=== PATIENT | female | born 1945 | race Caucasian/White ===

== ENCOUNTER → 2016-12-27 | Day surgery (SDC) | payer MEDICARE, MEDICAID ==
--- NOTE | 2016-12-25 08:48 | MH ---
cc: SHAWNA HARTLEY DATE OF ADMISSION 12/27/2016 HISTORY This is a 71 year-old female with chronic otitis for bilateral myringotomy and tube placement. PAST MEDICAL HISTORY Unremarkable PAST SURGICAL HISTORY Unremarkable REVIEW OF SYSTEMS, FAMILY HISTORY AND SOCIAL HISTORY Unremarkable. PHYSICAL EXAMINATION A well-appearing patient no acute distress noted. HEENT: Exam reveals fluid behind each eardrum. LUNGS: Clear. HEART: Regular rate and rhythm. ABDOMEN: Soft and nontender. EXTREMITIES: Without cyanosis, clubbing or edema. NEUROLOGIC: Alert, oriented, nonfocal neurologic exam. IMPRESSION A patient with chronic otitis for tubes. Instructed method of surgery and possible complication include anesthetic complications cardiac difficulty, pulmonary difficulty, stroke, coma or even . Surgical complications bleeding, infection, risk of early or late extrusion of tubes, tympanic membrane perforation, conductive or sensorineural hearing loss. The patient appeared to agree, accept and understand the above-mentioned risks and benefits. In addition, no guarantees or warranties regarding outcome were given. We will therefore proceed with surgery. MD SHIRA Croft/MONO /8:40 AM /8:47 AM
[~2016-12-27] VITALS: Ht 162.6 cm; Wt 76.0 kg
[~2016-12-27] MED LIST: ACETAMINOPHEN/HYDROcodone 325 MG/5 MG TAB PO PRN; ARTI99.0 EACH EYE; CHLORHEXIDINE GLUCONATE 2 % 1 PACK (2 CLOTHS) TOPICAL PRN; DO NOT ADM ANY ANTICOAGULANT DRUGS PRN; FERR324T4 PO; FERR325T PO; INSULIN HUMAN REGULAR 1,000 UNITS/10 ML VIAL SQ PRN; LACTATED RINGER'S 1000 ML IV PRN; MAPA325T PO; METOPROLOL TARTRATE 25 MG TAB PO PRN; MORPHINE SULFATE 4 MG/ML INJ IV PRN; OFLOXACIN 0.3% OPTH SOLN 5 ML BTL ONE; ONDANSETRON HCL 4 MG/2 ML VIAL IV PUSH ONE; ONDANSETRON HCL 4 MG/2 ML VIAL IV PUSH PRN; PAXI30TA7 PO; POTA1TAB4 PO; POVIDONE IODINE 5% (ANTISEPSIS KIT) 4 APPLICATIONS EACH NARE PRN; PROPOFOL 200 MG/20 ML AMP IV ONE; RANI150C PO; SODIUM CHLORID 0.9% 500 ML IV PRN; TEMA15CA PO; XIFA550T4 PO
[2016-12-27 06:42] VITALS: BP 140/88; PULSE 103; RESP 18; TEMP 97.9; O2SAT 97
[2016-12-27 09:33] VITALS: BP 165/80; PULSE 69; RESP 18; TEMP 97.9; O2SAT 97
--- NOTE | 2016-12-27 16:51 | EKG ---
Date Performed: 12/27/2016 Time Performed: 07:03:43 PTAGE: 71 years EKG: Sinus rhythm MODERATE ST DEPRESSION ABNORMAL ECG PREVIOUS TRACING : 01/06/2016 11.18 Compared to the previous tracing ST changes less prominent DOCTOR: Issa Calderón Interpretating Date/Time 12/27/2016 16:49:50
--- NOTE | 2017-01-04 19:36 | MP ---
cc: SHAWNA HARTLEY DATE OF SURGERY: 12/27/2016 PREOPERATIVE DIAGNOSIS Chronic otitis media. PROCEDURE Bilateral myringotomy and T-tube placement. ANESTHESIA General anesthesia. ESTIMATED BLOOD LOSS Minimal. COMPLICATIONS None. OPERATING SURGEON Dr. Hartley. OPERATION FOLLOWS The patient prepped and draped in the usual fashion. An anterior inferior radial myringotomy incision made under microscopic visualization on the right side. Fluid suctioned from middle ear cavity and tympanostomy T-tube placed in good position along with Oflox. In a similar fashion on the opposite side, anterior inferior radial myringotomy incision made. Fluid suctioned from middle ear cavity under microscopic visualization. Tympanostomy T-tube placed in good position along with Oflox. The patient tolerated the procedure well. MD SHIRA Croft/BJF /8:21 AM /7:21 PM
== END | disposition home or self-care (01) ==
LOC: HSDC 05:57
PROVIDERS: ATTEND Specialist
DX: H66.93 Otitis media, unspecified, bilateral (principal); F17.200 Nicotine dependence, unspecified, uncomplicated; K21.9 Gastro-esophageal reflux disease without esophagitis; R94.31 Abnormal electrocardiogram [ECG] [EKG]
CPT/HCPCS: 00126; 69436; 93005; J2405; J3010; J7120

== ENCOUNTER 2017-03-01 17:48 | Emergency (ER) | payer MEDICARE, MEDICAID ==
[~2017-03-01] VITALS: Ht 162.6 cm; Wt 70.0 kg
[~2017-03-01 17:48] MED LIST changes: -ACETAMINOPHEN/HYDROcodone 325 MG/5 MG TAB PO PRN; -CHLORHEXIDINE GLUCONATE 2 % 1 PACK (2 CLOTHS) TOPICAL PRN; -DO NOT ADM ANY ANTICOAGULANT DRUGS PRN; -FERR325T PO; -INSULIN HUMAN REGULAR 1,000 UNITS/10 ML VIAL SQ PRN; -LACTATED RINGER'S 1000 ML IV PRN; -METOPROLOL TARTRATE 25 MG TAB PO PRN; -MORPHINE SULFATE 4 MG/ML INJ IV PRN; -OFLOXACIN 0.3% OPTH SOLN 5 ML BTL ONE; -ONDANSETRON HCL 4 MG/2 ML VIAL IV PUSH ONE; -ONDANSETRON HCL 4 MG/2 ML VIAL IV PUSH PRN; -POVIDONE IODINE 5% (ANTISEPSIS KIT) 4 APPLICATIONS EACH NARE PRN; -PROPOFOL 200 MG/20 ML AMP IV ONE; -SODIUM CHLORID 0.9% 500 ML IV PRN; -TEMA15CA PO
[2017-03-01 18:24] VITALS: BP 150/92; PULSE 82; RESP 20; TEMP 99.4; O2SAT 94
--- NOTE | 2017-03-01 18:31 | PD ---
Physical Exam Date Seen by Provider: Mar 01, 2017 Time Seen by Provider: 18:30 Narrative 71 yo female here for evaluation of hypertension. History of this in the past. Sent here via ambulance to triage. States she felt "something was wrong". Had some chest pain. BP here 150 systolic. No complaints at this time. No other medical issues. Vitals are stable in triage. Awaiting bed placement. Data Data Last Documented VS Vital Signs Date Time Temp Pulse Resp B/P Pulse Ox O2 Delivery O2 Flow Rate FiO2 03/01/17 18:24 99.4 82 20 150/92 94 Room Air [facility] Medical Record Reviewed: Yes Supervised Visit with MARYAM: Devaughn Andrade Mar 01, 2017 18:31
[2017-03-01 19:38] LABS: AUTOMATED NEUTROPHIL # 2.3 TH/MM3 (1.8-7.7); BASOPHIL % 0.7 % (0.0-2.0); EOSINOPHIL # 0.1 TH/MM3 (0-0.4); HEMATOCRIT 42.3 % (35.0-46.0); LYMPH % 29.4 % (9.0-44.0); LYMPHOCYTE # 1.2 TH/MM3 (1.0-4.8); MEAN CELL VOLUME 99.5 FL (80.0-100.0); MEAN CORPUSCULAR HEMOGLOBIN 34.2 PG (27.0-34.0); MEAN CORPUSCULAR HGB CONC 34.4 % (32.0-36.0); MONO % 9.1 % (0.0-8.0); NEUT % 58.8 % (16.0-70.0); PLATELET COUNT 54 TH/MM3 (150-450); RED BLOOD COUNT 4.25 MIL/MM3 (4.00-5.30); RED CELL DISTRIBUTION WIDTH 14.6 % (11.6-17.2); WHITE BLOOD COUNT 3.9 TH/MM3 (4.0-11.0)
[2017-03-01 19:41] LABS: HEMO FLAGS AUTO DIFF
[2017-03-01 20:03] LABS: ANION GAP 8 MEQ/L (5-15); BICARBONATE 22.6 MEQ/L (21.0-32.0); BLOOD UREA NITROGEN 6 MG/DL (7-18); CHLORIDE 111 MEQ/L (98-107); GLOMERULAR FILTRATION RATE 107 ML/MIN (>89); POTASSIUM 3.5 MEQ/L (3.5-5.1); SODIUM (NA) 142 MEQ/L (136-145)
[2017-03-01 20:05] LABS: PLATELET ESTIMATE SMEAR LOW (NORMAL); PLATELET MORPHOLOGY NORMAL (NORMAL); SCAN/DIFF AUTO DIFF CONFIRMED
[2017-03-01 20:07] LABS: CREATINE KINASE 136 U/L (26-192)
[2017-03-01 20:19] LABS: CKMB 2.1 NG/ML (0.5-3.6)
--- NOTE | 2017-03-01 20:45 | PD ---
HPI Chief Complaint: Hypertension Time Seen by Provider: 20:45 Travel History International Travel<30 days: No Contact w/Intl Traveler<30days: No Traveled to known affect area: No History of Present Illness HPI Patient is a 71-year-old female presents from the rehabilitation facility where she has rehabbing shoulder surgery presents emergency Department with elevated blood pressure. Apparently on a routine check of vital signs today her blood pressure was found to be elevated 180 systolic range. Patient states she doesn' t have a history of blood pressure doesn't take any blood pressure medicines. She states she's been feeling well except for her shoulder pain which is getting better. She denies any chest pain shortness breath abdominal pain nausea vomiting diarrhea to me. Denies any decreased urination. Denies any headache weakness visual difficulties. PFSH Past Medical History Arthritis: No Asthma: No Autoimmune Disease: No Blood Disorders: No Anxiety: No Depression: Yes Heart Rhythm Problems: No Cancer: No Cardiovascular Problems: No High Cholesterol: No Chemotherapy: No Chest Pain: No Congestive Heart Failure: No COPD: No Cerebrovascular Accident: No Diabetes: No Diminished Hearing: Yes (HEARING AIDS) Endocrine: No GERD: No Genitourinary: No Headaches: No Hiatal Hernia: No Hypertension: No Immune Disorder: No Implanted Vascular Access Dvce: Yes Kidney Stones: No Musculoskeletal: Yes (HX RIGHT SHOULDER FX) Neurologic: Yes Psychiatric: Yes (DEPRESSIVE DISORDER) Reproductive: No Respiratory: No Migraines: Yes Radiation Therapy: No Renal Failure: No Seizures: No Sleep Apnea: No Thyroid Disease: No Ulcer: No ?: Not Menopausal: Yes : 2 Para: 2 Miscarriage: 1 Tubal Ligation: Yes Past Surgical History Abdominal Surgery: Yes (BOWEL OBSTRUCTION 35YRS AGO) Endocrine Surgery: Yes (Tubal Ligation) Genitourinary Surgery: Yes Other Surgery: Yes (Tubal ligation, patient denies any other surgeries.) Social History Alcohol Use: No Tobacco Use: Yes (1 PPD) Substance Use: No Allergies-Medications (Allergen,Severity, Reaction): Coded Allergies: No Known Allergies (Verified , 03/01/17) Reported Meds & Prescriptions Reported Meds & Active Scripts Active Reported Ferrous Sulfate DR (Ferrous Sulfate) 324 Mg Tabdr 324 Mg PO DAILY Natural Balance Tears Opth Drops (Artificial Tear Solution Opth Drops) 0.1-0.3% Soln 1 Drop EACH EYE DIRECTED Xifaxan (Rifaximin) 550 Mg Tab 550 Mg PO Q12HR Paxil (Paroxetine HCl) 30 Mg Tab 30 Mg PO DAILY Mapap (Acetaminophen) 325 Mg Tab 650 Mg PO Q4HR PRN Ranitidine (Ranitidine HCl) 150 Mg Cap 150 Mg PO BID K-Tab (Potassium Chloride) 20 Meq Tab 20 Meq PO DAILY Review of Systems Except as stated in HPI: all other systems reviewed are Neg Physical Exam Narrative GENERAL: Well-developed well-nourished in obvious distress. There is wet urine and the crotch of her pants. SKIN: Focused skin assessment warm/dry. HEAD: Atraumatic. Normocephalic. EYES: Pupils equal and round. No scleral icterus. No injection or drainage. ENT: No nasal bleeding or discharge. Mucous membranes pink and moist. NECK: Trachea midline. No JVD. CARDIOVASCULAR: Regular rate and rhythm. No murmur appreciated. 2+ bilateral equal pulses in all 4 extremity's. RESPIRATORY: No accessory muscle use. Clear to auscultation. Breath sounds equal bilaterally. GASTROINTESTINAL: Abdomen soft, non-tender, nondistended. Hepatic and splenic margins not palpable. MUSCULOSKELETAL: No obvious deformities. No clubbing. No cyanosis. No edema. NEUROLOGICAL: Awake and alert. Cranial nerves II through XII are grossly intact and nonfocal, 5 out of 5 strength in all 4 tremors. PSYCHIATRIC: Appropriate mood and affect; insight and judgment normal. Data Data Last Documented VS Vital Signs Date Time Temp Pulse Resp B/P Pulse Ox O2 Delivery O2 Flow Rate FiO2 03/01/17 22:09 89 18 167/89 99 Room Air 03/01/17 18:24 99.4 Orders Electrocardiogram (03/01/17 ) Complete Blood Count With Diff (03/01/17 18:34) Basic Metabolic Panel (Bmp) (03/01/17 18:34) Ckmb (Isoenzyme) Profile (03/01/17 18:34) Troponin I (03/01/17 18:34) CKMB (03/01/17 18:48) CKMB% (03/01/17 18:48) Chest, Pa & Lat (03/01/17 ) Labs Laboratory Tests Test 03/01/17 18:48 White Blood Count 3.9 TH/MM3 Red Blood Count 4.25 MIL/MM3 Hemoglobin 14.5 GM/DL Hematocrit 42.3 % Mean Corpuscular Volume 99.5 FL Mean Corpuscular Hemoglobin 34.2 PG Mean Corpuscular Hemoglobin 34.4 % Concent Red Cell Distribution Width 14.6 % Platelet Count 54 TH/MM3 Mean Platelet Volume 9.3 FL Neutrophils (%) (Auto) 58.8 % Lymphocytes (%) (Auto) 29.4 % Monocytes (%) (Auto) 9.1 % Eosinophils (%) (Auto) 2.0 % Basophils (%) (Auto) 0.7 % Neutrophils # (Auto) 2.3 TH/MM3 Lymphocytes # (Auto) 1.2 TH/MM3 Monocytes # (Auto) 0.4 TH/MM3 Eosinophils # (Auto) 0.1 TH/MM3 Basophils # (Auto) 0.0 TH/MM3 CBC Comment AUTO DIFF Differential Comment AUTO DIFF CONFIRMED Platelet Estimate LOW Platelet Morphology Comment NORMAL Sodium Level 142 MEQ/L Potassium Level 3.5 MEQ/L Chloride Level 111 MEQ/L Carbon Dioxide Level 22.6 MEQ/L Anion Gap 8 MEQ/L Blood Urea Nitrogen 6 MG/DL Creatinine 0.56 MG/DL Estimat Glomerular Filtration 107 ML/MIN Rate Random Glucose 124 MG/DL Calcium Level 8.4 MG/DL Total Creatine Kinase 136 U/L Creatine Kinase MB 2.1 NG/ML Troponin I 0.02 NG/ML MDM Medical Decision Making Medical Screen Exam Complete: Yes Emergency Medical Condition: Yes Differential Diagnosis A symptomatic hypertension, ACS unlikely, MT likely, hypertensive emergency unlikely, CHF unlikely. Narrative Course 71-year-old female presents today with asymptomatic hypertension. Basic labs were obtained in triage which are reassuring. Chest x-ray was added which is reassuring. Discussed with the patient, management of chronic hypertension with her primary care physician in monitoring her blood pressure home. She is stable for discharge at this time. Transportation arrived to take her back to the [place] [facility] facility and she ambulating from the emergency department in no distress. Diagnosis Primary Impression: Asymptomatic hypertension Additional Instructions: Follow-up with your primary care physician for further treatment of your blood pressure to prevent secondary complications. Disposition: 01 DISCHARGE HOME Condition: Stable Fidel Calvin MD Mar 01, 2017 20:45
[2017-03-01 22:09] VITALS: BP 167/89; PULSE 89; RESP 18; O2SAT 99
--- NOTE | 2017-03-01 22:18 | RADRPT ---
EXAM DATE/TIME: 03/01/2017 22:02 [facility] COMPARISON: No previous studies available for comparison. INDICATIONS : Shortness of breath and chest pain. MEDICAL HISTORY : None. SURGICAL HISTORY : None. ENCOUNTER: Initial ACUITY: 1 day PAIN SCORE: 3/10 LOCATION: chest FINDINGS: PA and lateral views of the chest demonstrate the lungs to be symmetrically aerated without evidence of mass, infiltrate or effusion. Minimal linear atelectasis at the bases. The cardiomediastinal cont ours are unremarkable. Osseous structures are intact. CONCLUSION: 1. Minimal linear atelectasis at the bases. Regino Christensen MD on March 01, 2017 at 22:15 Board Certified Radiologist. This report was verified electronically.
--- NOTE | 2017-03-02 16:03 | EKG ---
Date Performed: 03/01/2017 Time Performed: 18:38:28 PTAGE: 71 years EKG: Sinus rhythm MODERATE ST DEPRESSION ABNORMAL ECG PREVIOUS TRACING : 12/27/2016 07.03 Since previous tracing, no significant change. DOCTOR: Ruben García Interpretating Date/Time 03/02/2017 16:02:30
== END 2017-03-01 22:58 | disposition home or self-care (01) ==
LOC: NEPD 17:48
DX: I10 Essential (primary) hypertension (principal); F17.200 Nicotine dependence, unspecified, uncomplicated; R94.31 Abnormal electrocardiogram [ECG] [EKG]
CPT/HCPCS: 71020; 80048; 82550; 82552; 84484; 85025; 93005; 99285

== ENCOUNTER 2017-05-04 12:36 | Emergency (ER) | payer MEDICARE, MEDICAID ==
[2017-05-04 12:42] VITALS: BP 138/86; PULSE 82; RESP 16; TEMP 97.9; O2SAT 97
[2017-05-04] MEDS ORDERED: SODIUM CHLOR 0.9% 1000 ML INJ 1,000 ML IV ONE (12:49)
[2017-05-04] MEDS ORDERED: ZANT150T2 PO (12:53)
[2017-05-04] MEDS ORDERED: CALCCHW5 PO (12:54)
--- NOTE | 2017-05-04 12:56 | PD ---
HPI Chief Complaint: Neuro Symptoms/ Deficits Time Seen by Provider: 12:47 Travel History International Travel<30 days: No Contact w/Intl Traveler<30days: No Traveled to known affect area: No History of Present Illness HPI 71-year-old female presents to the emergency department for evaluation of blurry vision, double vision, dizziness that started approximately an hour ago. Patient states that she lives in a nursing facility. She did arrive via EMS. She woke up feeling okay, took a shower, went outside to smoke. While smoking , she started to feel dizzy and had blurry vision. Patient states that the dizziness resolves when she lay still. She only has dizziness upon movement. Patient states she has had dizziness in the past. Patient denies any headache. No fevers or chills. No chest pain or shortness of breath. No abdominal pain. No nausea, vomiting, diarrhea. Patient has history of hepatic encephalopathy, dementia. Patient denies any alcohol use. She smokes approximately one pack per day. Patient denies any syncope or head injury. PFSH Past Medical History Arthritis: No Asthma: No Autoimmune Disease: No Blood Disorders: No Anxiety: No Depression: Yes Heart Rhythm Problems: No Cancer: No Cardiovascular Problems: No High Cholesterol: No Chemotherapy: No Chest Pain: No Congestive Heart Failure: No COPD: No Cerebrovascular Accident: No Diabetes: No Diminished Hearing: No Endocrine: No GERD: No Genitourinary: No Headaches: No Hiatal Hernia: No Hypertension: No Immune Disorder: No Implanted Vascular Access Dvce: Yes Kidney Stones: No Medical other: Yes (HEPATIC ENCEPHALOPATHY) Musculoskeletal: Yes (HX RIGHT SHOULDER FX) Neurologic: Yes Psychiatric: Yes (DEPRESSIVE DISORDER) Reproductive: No Respiratory: No Migraines: Yes Radiation Therapy: No Renal Failure: No Seizures: No Sleep Apnea: No Thyroid Disease: No Ulcer: No Menopausal: Yes : 2 Para: 2 Miscarriage: 1 Tubal Ligation: Yes Past Surgical History Abdominal Surgery: Yes (BOWEL OBSTRUCTION 35YRS AGO) Ear Surgery: Yes (MYRINGOTOMY AND TUBES) Endocrine Surgery: Yes (Tubal Ligation) Genitourinary Surgery: Yes Other Surgery: Yes (Tubal ligation, patient denies any other surgeries.) Family History Family Myocardial Infarction: Yes Social History Alcohol Use: No (HX OF ETOH USE) Tobacco Use: Yes (1 PPD) Substance Use: No Allergies-Medications (Allergen,Severity, Reaction): Coded Allergies: No Known Allergies (Verified , 03/01/17) Reported Meds & Prescriptions Reported Meds & Active Scripts Active Reported Calcium 600 with Vitamin 600-400 mg-Unit (Calcium Carbonate-Vitamin D) 600 Mg- 400 Chw 1 Tab PO BID Zantac (Ranitidine HCl) 150 Mg Tab 150 Mg PO HS Ferrous Sulfate DR (Ferrous Sulfate) 324 Mg Tabdr 324 Mg PO DAILY Natural Balance Tears Opth Drops (Artificial Tear Solution Opth Drops) 0.1-0.3% Soln 1 Drop EACH EYE DIRECTED Xifaxan (Rifaximin) 550 Mg Tab 550 Mg PO Q12HR Paxil (Paroxetine HCl) 30 Mg Tab 30 Mg PO DAILY Mapap (Acetaminophen) 325 Mg Tab 650 Mg PO Q4HR PRN K-Tab (Potassium Chloride) 20 Meq Tab 20 Meq PO DAILY Review of Systems Except as stated in HPI: all other systems reviewed are Neg Physical Exam Narrative GENERAL: Well-nourished, well-developed female patient, afebrile. Patient is alert and oriented to person, place, time. SKIN: Focused skin assessment warm/dry. HEAD: Normocephalic. Atraumatic. EYES: No scleral icterus. No injection or drainage. PERRLA. NECK: Supple, trachea midline. No JVD or lymphadenopathy. CARDIOVASCULAR: Regular rate and rhythm without murmurs, gallops, or rubs. RESPIRATORY: Breath sounds equal bilaterally. No accessory muscle use. Lungs sounds are clear to auscultation. GASTROINTESTINAL: Abdomen soft, non-tender, nondistended. MUSCULOSKELETAL: No cyanosis, or edema. Bilateral upper and lower extremity strength 5/5. All extremities are neurovascularly intact. NEUROLOGICAL: Awake and alert. Cranial nerves II through XII intact. Motor and sensory grossly within normal limits. Five out of 5 muscle strength in all muscle groups. Normal speech. Data Data Last Documented VS Vital Signs Date Time Temp Pulse Resp B/P (MAP) Pulse Ox O2 Delivery O2 Flow Rate FiO2 05/04/17 12:54 Room Air 05/04/17 12:42 97.9 82 16 138/86 (103) 97 Orders Orders Electrocardiogram (05/04/17 12:49) Complete Blood Count With Diff (05/04/17 12:49) Comprehensive Metabolic Panel (05/04/17 12:49) Magnesium (Mg) (05/04/17 12:49) Ckmb (Isoenzyme) Profile (05/04/17 12:49) Troponin I (05/04/17 12:49) Act Partial Throm Time (Ptt) (05/04/17 12:49) Prothrombin Time / Inr (Pt) (05/04/17 12:49) Urinalysis - C+S If Indicated (05/04/17 12:49) Chest, Single Ap (05/04/17 12:49) Ct Brain W/O Iv Contrast(Rout) (05/04/17 12:49) Ecg Monitoring (05/04/17 12:49) Iv Access Insert/Monitor (05/04/17 12:49) Oximetry (05/04/17 12:49) Sodium Chloride 0.9% Flush (Ns Flush) (05/04/17 13:00) Sodium Chlor 0.9% 1000 Ml Inj (Ns 1000 M (05/04/17 12:49) Orthostatic Vital Signs (05/04/17 12:49) Ammonia (05/04/17 12:56) CKMB (05/04/17 13:05) CKMB% (05/04/17 13:05) Labs Laboratory Tests Test 05/04/17 13:05 White Blood Count 3.4 TH/MM3 Red Blood Count 4.26 MIL/MM3 Hemoglobin 14.6 GM/DL Hematocrit 41.8 % Mean Corpuscular Volume 98.0 FL Mean Corpuscular Hemoglobin 34.3 PG Mean Corpuscular Hemoglobin Concent 35.1 % Red Cell Distribution Width 13.9 % Platelet Count 62 TH/MM3 Mean Platelet Volume 9.3 FL Neutrophils (%) (Auto) 52.4 % Lymphocytes (%) (Auto) 35.2 % Monocytes (%) (Auto) 8.5 % Eosinophils (%) (Auto) 2.7 % Basophils (%) (Auto) 1.2 % Neutrophils # (Auto) 1.8 TH/MM3 Lymphocytes # (Auto) 1.2 TH/MM3 Monocytes # (Auto) 0.3 TH/MM3 Eosinophils # (Auto) 0.1 TH/MM3 Basophils # (Auto) 0.0 TH/MM3 CBC Comment AUTO DIFF Differential Comment AUTO DIFF CONFIRMED Platelet Estimate LOW Platelet Morphology Comment NORMAL Prothrombin Time 13.0 SEC Prothromb Time International Ratio 1.2 RATIO Activated Partial Thromboplast Time 28.9 SEC Urine Color YELLOW Urine Turbidity HAZY Urine pH 8.0 Urine Specific [place] 1.008 Urine Protein NEG mg/dL Urine Glucose (UA) NEG mg/dL Urine Ketones NEG mg/dL Urine Occult Blood NEG Urine Nitrite NEG Urine Bilirubin NEG Urine Urobilinogen LESS THAN 2.0 MG/DL Urine Leukocyte Esterase NEG Urine WBC LESS THAN 1 /hpf Urine Squamous Epithelial Cells 1 /hpf Urine Amorphous Sediment RARE Urine Bacteria RARE /hpf Urine Mucus FEW /lpf Microscopic Urinalysis Comment CULT NOT INDICATED Blood Urea Nitrogen 4 MG/DL Creatinine 0.52 MG/DL Random Glucose 97 MG/DL Total Protein 6.3 GM/DL Albumin 3.1 GM/DL Calcium Level 8.7 MG/DL Magnesium Level 1.8 MG/DL Alkaline Phosphatase 158 U/L Aspartate Amino Transf (AST/SGOT) 60 U/L Alanine Aminotransferase (ALT/SGPT) 33 U/L Total Bilirubin 2.1 MG/DL Sodium Level 142 MEQ/L Potassium Level 4.1 MEQ/L Chloride Level 110 MEQ/L Carbon Dioxide Level 27.6 MEQ/L Anion Gap 4 MEQ/L Estimat Glomerular Filtration Rate 117 ML/MIN Ammonia 44 MCMOL/L Total Creatine Kinase 157 U/L Creatine Kinase MB 2.2 NG/ML Troponin I LESS THAN 0.02 NG/ML MDM Medical Decision Making Medical Screen Exam Complete: Yes Emergency Medical Condition: Yes Medical Record Reviewed: Yes Interpretation(s) CT of the brain - CONCLUSION: 1. Senescent changes with mild small vessel periventricular ischemic white matter demyelination. 2. No acute intracranial abnormality or significant interval change. chest x-ray =- CONCLUSION: 1. Minimal linear left lower lobe opacity, likely atelectasis/scarring. Differential Diagnosis Vertigo versus electrolyte abnormality versus cardiac arrhythmia versus ACS versus dehydration versus TIA versus CVA Narrative Course 71-year-old female presents to the emergency department for evaluation of double vision, dizziness that started approximately an hour ago. Otherwise, she has no other symptoms or complaints. EKG, CBC, CMP, magnesium, CK, troponin , ammonia, PTT, PT/INR, UA are ordered and pending. Chest x-ray and CT of the brain are ordered and pending. Orthostatic vital signs are ordered and pending. Patient is given normal saline 1 L IV bolus. EKG shows sinus rhythm, heart rate, 77, unchanged previous EKG. CBC shows leukopenia of 3.4, which appears chronic for patient. CMP shows elevated bilirubin 2.1, AST 60, no acute abnormalities. CK is 157. Troponin is less than 0.02. Magnesium is 1.8. Ammonia is 44. Coags show no acute abnormality. UA is negative for acute infection. Chest x-ray shows Minimal linear left lower lobe opacity, likely atelectasis/scarring. CT of the brain shows senescent changes with mild small vessel periventricular ischemic white matter demyelination; no acute intracranial abnormality or significant interval change. Patient is able to ambulate in the emergency department without difficulty. I discussed the case and all findings attending physician, Dr. Velasquez, who agrees with plan and disposition. Patient will be discharged back to nursing facility to follow-up with her primary care physician. She verbalizes agreement and understanding of like to return home. The patient was discharged in stable condition with instructions, including return instructions and follow up instructions. Diagnosis Primary Impression: Dizziness Referrals: Primary Care Physician call for appointment Patient Instructions: Dizziness (ED), General Instructions Additional Instructions: Follow-up with your primary care physician. Return to the emergency department for any acute worsening of symptoms. Med/Other Pt SpecificInfo: No Change to Meds Disposition: 01 DISCHARGE HOME Condition: Stable Ela Keane ASHLEIGH May 04, 2017 12:55
[2017-05-04] MEDS ORDERED: SODIUM CHLORIDE 0.9% FLUSH 10 ML FLUSH IVF PRN (13:00)
--- NOTE | 2017-05-04 13:21 | RADRPT ---
EXAM DATE/TIME: 05/04/2017 13:11 [facility] COMPARISON: CT BRAIN W/O CONTRAST, January 05, 2016, 11:43. INDICATIONS : Dizziness and vision changes today. RADIATION DOSE: 34.37 CTDIvol (mGy) MEDICAL HISTORY : Dementia. hepatic encephalopathy SURGICAL HISTORY : Tubal ligation. ENCOUNTER: Initial ACUITY: 1 day PAIN SCALE: 0/10 LOCATION: Bilateral head TECHNIQUE: Multiple contiguous axial images were obtained of the head. Using automated exposure control and adj ustment of the mA and/or kV according to patient size, radiation dose was kept as low as reasonably a chievable to obtain optimal diagnostic quality images. DICOM format image data is available electro nically for review and comparison. FINDINGS: CEREBRUM: Moderate diffuse cerebral volume loss. Mild periventricular ischemic white matter hypodensities. The ventricles are normal for age. No evidence of midline shift, mass lesion, hemorrhage or acute infarc tion. No extra-axial fluid collections are seen. POSTERIOR FOSSA: The cerebellum and brainstem are intact. The 4th ventricle is midline. The cerebellopontine angle i s unremarkable. EXTRACRANIAL: The visualized portion of the orbits is intact. SKULL: The calvaria is intact. No evidence of skull fracture. CONCLUSION: 1. Senescent changes with mild small vessel periventricular ischemic white matter demyelination. 2. No acute intracranial abnormality or significant interval change. Krish Alvarez MD on May 04, 2017 at 13:18 Board Certified Radiologist. This report was verified electronically.
[2017-05-04 13:28] LABS: AUTOMATED NEUTROPHIL # 1.8 TH/MM3 (1.8-7.7); BASOPHIL % 1.2 % (0.0-2.0); EOSINOPHIL # 0.1 TH/MM3 (0-0.4); EOSINOPHIL % 2.7 % (0.0-4.0); HEMATOCRIT 41.8 % (35.0-46.0); LYMPH % 35.2 % (9.0-44.0); LYMPHOCYTE # 1.2 TH/MM3 (1.0-4.8); MEAN CORPUSCULAR HEMOGLOBIN 34.3 PG (27.0-34.0); MEAN CORPUSCULAR HGB CONC 35.1 % (32.0-36.0); MONO % 8.5 % (0.0-8.0); NEUT % 52.4 % (16.0-70.0); PLATELET COUNT 62 TH/MM3 (150-450); RED BLOOD COUNT 4.26 MIL/MM3 (4.00-5.30); RED CELL DISTRIBUTION WIDTH 13.9 % (11.6-17.2); WHITE BLOOD COUNT 3.4 TH/MM3 (4.0-11.0)
[2017-05-04 13:29] LABS: HEMO FLAGS AUTO DIFF
[2017-05-04 13:38] LABS: APTT (PATIENT) 28.9 SEC (24.3-30.1); BACTERIA, URINE RARE /hpf; BLOOD, URINE NEG (NEG); COMMENT (UR) CULT NOT INDICATED; CULTURE IF INDICATED CULT NOT INDICATED; GLUCOSE,URINE NEG (NEG); INTERNATIONAL NORMALIZED RATIO 1.2 RATIO; KETONE, URINE NEG (NEG); MUCUS URINE FEW /lpf (OCC); NITRITE,URINE NEG (NEG); SQUAMOUS EPITHELIAL CELL URINE 1 /hpf (0-5); URINE COLOR YELLOW (YELLW/STRAW)
--- NOTE | 2017-05-04 13:51 | EKG ---
Date Performed: 05/04/2017 Time Performed: 12:53:06 PTAGE: 71 years EKG: Sinus rhythm NONSPECIFIC ST DEPRESSION ABNORMAL ECG NO PREVIOUS TRACING DOCTOR: Loyd Bustamante Interpretating Date/Time 05/04/2017 13:50:58
[2017-05-04 13:52] LABS: ALKALINE PHOSPHATASE 158 U/L (45-117); CREATINE KINASE 157 U/L (26-192); TOTAL BILIRUBIN ADULT 2.1 MG/DL (0.2-1.0)
[2017-05-04 13:54] LABS: ALT (GPT) 33 U/L (10-53); ANION GAP 4 MEQ/L (5-15); AST (GOT) 60 U/L (15-37); BICARBONATE 27.6 MEQ/L (21.0-32.0); BLOOD UREA NITROGEN 4 MG/DL (7-18); CHLORIDE 110 MEQ/L (98-107); GLOMERULAR FILTRATION RATE 117 ML/MIN (>89); MAGNESIUM 1.8 MG/DL (1.5-2.5); PLATELET ESTIMATE SMEAR LOW (NORMAL); PLATELET MORPHOLOGY NORMAL (NORMAL); POTASSIUM 4.1 MEQ/L (3.5-5.1); SCAN/DIFF AUTO DIFF CONFIRMED; SODIUM (NA) 142 MEQ/L (136-145)
--- NOTE | 2017-05-04 14:02 | RADRPT ---
EXAM DATE/TIME: 05/04/2017 13:34 [facility] COMPARISON: CHEST SINGLE AP, January 05, 2016, 11:19. INDICATIONS : High blood pressure per patient MEDICAL HISTORY : None. SURGICAL HISTORY : None. ENCOUNTER: Initial ACUITY: 1 day PAIN SCORE: 0/10 LOCATION: Bilateral chest FINDINGS: No new focal pleural or parenchymal opacities. Cardiomediastinal contours are within normal limits. B jose thorax is intact. CONCLUSION: 1. No acute cardiopulmonary disease or significant interval change. Krish Alvarez MD on May 04, 2017 at 14:00 Board Certified Radiologist. This report was verified electronically.
[2017-05-04 14:05] LABS: CKMB 2.2 NG/ML (0.5-3.6)
== END 2017-05-04 17:56 | disposition home or self-care (01) ==
LOC: NEPE 12:36
DX: R42 Dizziness and giddiness (principal); D72.819 Decreased white blood cell count, unspecified; K72.90 Hepatic failure, unspecified without coma; F03.90 Unspecified dementia, unspecified severity, without behavioral disturbance, psychotic disturbance, mood disturbance, and anxiety; R94.31 Abnormal electrocardiogram [ECG] [EKG]; F17.200 Nicotine dependence, unspecified, uncomplicated; F32.9 Major depressive disorder, single episode, unspecified; Z79.899 Other long term (current) drug therapy
CPT/HCPCS: 70450; 71010; 80053; 81001; 82140; 82550; 82552; 83735; 84484; 85025; 85610; 85730; 93005; 99285; J7030

== ENCOUNTER → 2017-06-18 | Outpatient (CLI) | payer MEDICARE, OTHER ==
[~2017-06-18] VITALS: Ht 157.5 cm; Wt 75.6 kg
[~2017-06-18] MED LIST changes: +CALCCHW5 PO; +CHLORHEXIDINE GLUCONATE 2 % 1 PACK (2 CLOTHS) TOPICAL PRN; +CIPR0.3S EACH EAR; +HYDR-3288 PO; +INSULIN HUMAN REGULAR 1,000 UNITS/10 ML VIAL SQ PRN; +LACT10SO PO; +LACTATED RINGER'S 1000 ML IV PRN; +LIDOCAINE HCL 1% PF 5 ML AMPULE OTHER ONE; +METOPROLOL TARTRATE 25 MG TAB PO PRN; +POVIDONE IODINE 5% (ANTISEPSIS KIT) 4 APPLICATIONS EACH NARE PRN; +PROPOFOL 200 MG/20 ML AMP IV ONE; -RANI150C PO; +SODIUM CHLORID 0.9% 500 ML IV PRN; +TEMA15CA PO; +XIFA200T4 PO; +ZANT150T2 PO; +[UNRECOGNIZED DRUG - CODE] TOPICAL
--- NOTE | 2017-06-18 10:17 | PD.PROCEDR ---
GI Procedure PROCEDURE PERFORMED EGD with biopsy INDICATION FOR PROCEDURE Cirrhosis PROCEDURE: The procedure, risks and benefits were discussed with Ms. Valentin and informed consent was obtained. Anesthesia sedated her with Diprivan. She was placed in the left lateral decubitus position. EGD: The Pentax videoscope was introduced through the oropharynx and advanced to the second portion of the duodenum under direct visualization. Retroflexion was performed in the stomach. FINDINGS: Esophagus this appeared to be unremarkable and within normal limits the Z line was regular Stomach the gastric mucosa was diffusely erythemic in a punctate fashion with some mild edema and no ulcerations no erosions the antrum was biopsied for further evaluation on retroflexion the patient was noted to have a fairly very small possible gastric varices Duodenum this was normal ESTIMATED BLOOD LOSS: None SPECIMENS REMOVED: Antral biopsy COMPLICATIONS: None IMPRESSION: Pangastritis Small early possible gastric varices PLAN: Await biopsies Follow-up in clinic in 3-4 weeks Low-salt diet Esteban Escobedo MD Jun 18, 2017 10:17
[2017-06-18 10:30] VITALS: TEMP 97.7
[2017-06-18 10:45] VITALS: BP 130/72; PULSE 73; RESP 16; O2SAT 98
== END ==
LOC: HSDC 07:44
PROVIDERS: ATTEND Internal Medicine Gastroenterology
DX: K29.50 Unspecified chronic gastritis without bleeding (principal)
CPT/HCPCS: 88305; 88312

== ENCOUNTER 2017-12-13 12:03 | Inpatient (IN) | payer MEDICARE, OTHER ==
[2017-12-13] VITALS (7 sets, daily range): BP systolic 136–196; BP diastolic 63–86; PULSE 56–58; RESP 18; TEMP 97.9; O2SAT 94–99
[~2017-12-13] VITALS: Ht 160 cm; Wt 73.7 kg
[~2017-12-13 12:03] MED LIST changes: -CHLORHEXIDINE GLUCONATE 2 % 1 PACK (2 CLOTHS) TOPICAL PRN; -INSULIN HUMAN REGULAR 1,000 UNITS/10 ML VIAL SQ PRN; -LACTATED RINGER'S 1000 ML IV PRN; -LIDOCAINE HCL 1% PF 5 ML AMPULE OTHER ONE; -METOPROLOL TARTRATE 25 MG TAB PO PRN; -POVIDONE IODINE 5% (ANTISEPSIS KIT) 4 APPLICATIONS EACH NARE PRN; -PROPOFOL 200 MG/20 ML AMP IV ONE; -SODIUM CHLORID 0.9% 500 ML IV PRN; -XIFA550T4 PO
[2017-12-13] MEDS ORDERED: IODIXANOL 320 MG/ML 10 ML VIAL (for Rad CT) IVCONTRAST ONE (12:04)
[2017-12-13] MEDS ORDERED: SODIUM CHLOR 0.9% 1000 ML INJ 1,000 ML IV ONE (12:20)
--- NOTE | 2017-12-13 12:29 | RADRPT ---
EXAM DATE/TIME: 12/13/2017 12:10 [facility] COMPARISON: No previous studies available for comparison. INDICATIONS : Stroke alert, left side deficit. RADIATION DOSE: 56.35 CTDIvol (mGy) This report was called by Phani Gates at 1224 MEDICAL HISTORY : Non-responsive. SURGICAL HISTORY : Non-responsive. ENCOUNTER: Initial ACUITY: 1 day PAIN SCALE: Non-responsive LOCATION: cranial TECHNIQUE: Multiple contiguous axial images were obtained of the head. Using automated exposure control and adj ustment of the mA and/or kV according to patient size, radiation dose was kept as low as reasonably a chievable to obtain optimal diagnostic quality images. DICOM format image data is available electro nically for review and comparison. FINDINGS: Ventricles are symmetric and normal in appearance. No abnormal extra-axial fluid accumulation is iden tified. There is no evidence of intracranial hemorrhage or mass. There is nothing to suggest acute in farction. There is patchy diminished attenuation and deep white matter appears benign. There is mild mucosal thickening in occasional facial sinuses. CONCLUSION: No acute intracranial findings Candido Jeronimo MD on December 13, 2017 at 12:23 Board Certified Radiologist. This report was verified electronically.
[2017-12-13 12:57] LABS: AUTOMATED NEUTROPHIL # 1.2 TH/MM3 (1.8-7.7); BASOPHIL % 0.6 % (0.0-2.0); EOSINOPHIL # 0.1 TH/MM3 (0-0.4); EOSINOPHIL % 2.7 % (0.0-4.0); HEMATOCRIT 42.7 % (35.0-46.0); HEMOGLOBIN 14.4 GM/DL (11.6-15.3); LYMPH % 49.4 % (9.0-44.0); LYMPHOCYTE # 1.5 TH/MM3 (1.0-4.8); MEAN CELL VOLUME 99.1 FL (80.0-100.0); MEAN CORPUSCULAR HEMOGLOBIN 33.4 PG (27.0-34.0); MEAN CORPUSCULAR HGB CONC 33.7 % (32.0-36.0); MEAN PLATELET VOLUME 10.1 FL (7.0-11.0); MONO % 8.2 % (0.0-8.0); MONOCYTE # 0.2 TH/MM3 (0-0.9); NEUT % 39.1 % (16.0-70.0); PLATELET COUNT 55 TH/MM3 (150-450); RED CELL DISTRIBUTION WIDTH 14.4 % (11.6-17.2)
[2017-12-13] MEDS ORDERED: NADO20TA PO (12:57)
[2017-12-13] MEDS ORDERED: LISI-519 PO (12:57)
--- NOTE | 2017-12-13 12:58 | PD ---
HPI Chief Complaint: Stroke Alert Time Seen by Provider: 12:20 Travel History International Travel<30 days: No Contact w/Intl Traveler<30days: No Traveled to known affect area: No History of Present Illness HPI This patient was brought in as a stroke alert. Unfortunately I was not notified of the patient's arrival and no stroke alert was called. I was out of the pod briefly when the patient arrives and the patient went to CT probably after the 10 minute window and before even seeing the patient. The patient returns from CT I evaluated the patient promptly. Patient at 11:00 vomited and was noted to have left arm and left leg weakness and a left-sided facial droop. She has history of alcoholic liver disease and thrombocytopenia. She no longer drinks alcohol. She is a penitentiary resident. She has some mild speech slurring which is chronic. Symptoms moderately severe. Duration 90 minutes. No alleviating factors. No exacerbating factors. PFSH Past Medical History Arthritis: No Asthma: No Autoimmune Disease: No Blood Disorders: No Anxiety: No Depression: Yes Heart Rhythm Problems: No Cancer: No Cardiovascular Problems: No High Cholesterol: No Chemotherapy: No Chest Pain: No Congestive Heart Failure: No COPD: No Cerebrovascular Accident: No Diabetes: No Diminished Hearing: Yes Endocrine: No GERD: No Genitourinary: No Headaches: No Hiatal Hernia: No Hypertension: No Immune Disorder: No Implanted Vascular Access Dvce: Yes Kidney Stones: No Musculoskeletal: Yes (HX RIGHT SHOULDER FX) Neurologic: Yes Psychiatric: Yes (DEPRESSIVE DISORDER) Reproductive: No Respiratory: No Migraines: Yes Radiation Therapy: No Renal Failure: No Seizures: No Sleep Apnea: No Thyroid Disease: No Ulcer: No Tetanus Vaccination: > 5 Years Influenza Vaccination: No Menopausal: Yes : 2 Para: 2 Miscarriage: 1 Tubal Ligation: Yes Past Surgical History Abdominal Surgery: Yes (BOWEL OBSTRUCTION 35YRS AGO) Ear Surgery: Yes (MYRINGOTOMY AND TUBES) Endocrine Surgery: Yes (Tubal Ligation) Genitourinary Surgery: Yes Other Surgery: Yes (Tubal ligation, patient denies any other surgeries.) Family History Family Myocardial Infarction: Yes Social History Alcohol Use: No (HX OF ETOH USE) Tobacco Use: Yes (1 PPD) Substance Use: No Allergies-Medications (Allergen,Severity, Reaction): Coded Allergies: No Known Allergies (Verified Allergy, Unknown, 12/13/17) Reported Meds & Prescriptions Reported Meds & Active Scripts Active Reported Nadolol 20 Mg Tab 20 Mg PO DAILY Lisinopril 5 Mg Tab 5 Mg PO DAILY Ciprodex Otic Drops (Ciprofloxacin-Dexamethasone Otic Drops) 0.3-0.1% Susp 3 Drop EACH EAR BID PRN [place] (Hydrocodone-Acetaminophen) 7.5-325 mg Tab 1 Tab PO Q4H PRN Xifaxan (Rifaximin) 200 Mg Tab 400 Mg PO TID Lactulose Liq (Lactulose) 10 Gm/15 Ml Soln 30 Ml PO BID Hydrocortisone Butyrate Topical (Hydrocortisone Butyrate) 0.1% Soln 1 Applic TOPICAL BID Temazepam 15 Mg Cap 15 Mg PO HS PRN Calcium 600 with Vitamin 600-400 mg-Unit (Calcium Carbonate-Vitamin D) 600 Mg- 400 Chw 1 Tab PO BID Zantac (Ranitidine HCl) 150 Mg Tab 150 Mg PO HS Ferrous Sulfate DR (Ferrous Sulfate) 324 Mg Tabdr 324 Mg PO DAILY Natural Balance Tears Opth Drops (Artificial Tear Solution Opth Drops) 0.1-0.3% Soln 1 Drop EACH EYE DIRECTED Paxil (Paroxetine HCl) 30 Mg Tab 30 Mg PO DAILY Mapap (Acetaminophen) 325 Mg Tab 650 Mg PO Q4HR PRN K-Tab (Potassium Chloride) 20 Meq Tab 20 Meq PO DAILY Review of Systems General / Constitutional: No: Fever Eyes: No: Visual changes HENT: No: Headaches Cardiovascular: No: Chest Pain or Discomfort Respiratory: No: Shortness of Breath Gastrointestinal: No: Abdominal Pain Genitourinary: No: Dysuria Musculoskeletal: Positive: Weakness, No: Pain Skin: No Rash Neurologic: Positive: Weakness, Slurred Speech Psychiatric: No: Depression Endocrine: No: Polydipsia Hematologic/Lymphatic: No: Easy Bruising Physical Exam Narrative GENERAL: Well-nourished, well-developed patient in no apparent distress. SKIN: Focused skin assessment reveals no rash and nodules. Skin is Warm and dry. HEAD: Atraumatic. Normocephalic. EYES: Pupils equal and round. No scleral icterus. No injection or drainage. ENT: No nasal bleeding or discharge. Mucous membranes pink and moist. NECK: Trachea midline. No JVD. CARDIOVASCULAR: Regular rate and rhythm. No murmur appreciated. RESPIRATORY: No accessory muscle use. Clear to auscultation. Breath sounds equal bilaterally. GASTROINTESTINAL: Abdomen soft, non-tender, nondistended. Hepatic and splenic margins not palpable. MUSCULOSKELETAL: No obvious deformities. No clubbing. No cyanosis. No edema. NEUROLOGICAL: Awake and alert. Subtle left-sided facial droop. Motor exam reveals subtle left arm and left leg weakness. Slight slurring of speech. PSYCHIATRIC: Appropriate mood and affect; insight and judgment slightly reduced. Data Data Last Documented VS Vital Signs Date Time Temp Pulse Resp B/P (MAP) Pulse Ox O2 Delivery O2 Flow Rate FiO2 12/13/17 14:46 56 18 136/64 (88) 95 Nasal Cannula 2.00 12/13/17 12:12 97.9 Orders Orders Diet Npo (12/13/17 Lunch) Activity Bed Rest (12/13/17 ) Electrocardiogram (12/13/17 ) I-Stat Profile (12/13/17 12:20) Prothrombin Time / Inr (Pt) (12/13/17 12:20) Act Partial Throm Time (Ptt) (12/13/17 12:20) Complete Blood Count With Diff (12/13/17 12:20) Fibrinogen (12/13/17 12:20) Creatine Kinase (Cpk) (12/13/17 12:20) Troponin I (12/13/17 12:20) Ua Includes Microscopic (12/13/17 12:20) Drug Screen, Random Urine (12/13/17 12:20) Type And Screen (12/13/17 12:20) Ct Brain W/O Iv Contrast(Rout) (12/13/17 ) Blood Glucose (12/13/17 12:20) Ecg Monitoring (12/13/17 12:20) Neuro Checks Q2HX12,Q4H (12/13/17 12:20) Nursing Bedside Swallow Assess .ONCE (12/13/17 12:20) Iv Access Insert/Monitor (12/13/17 12:20) NPO (12/13/17 12:20) Oximetry (12/13/17 12:20) Resp Oxygen Nc Stroke (12/13/17 ) Sodium Chlor 0.9% 1000 Ml Inj (Ns 1000 M (12/13/17 12:20) Cath For Specimen (12/13/17 12:20) Cta Brain W Iv Contrast W 3d (12/13/17 12:37) Cta Neck W Iv Contrast W 3d (12/13/17 12:37) Consult Neurology (12/13/17 ) (Hub Use Only)Inp Phy Cons/Ref (12/13/17 ) Iodixanol 320 Inj (Rad Ct) (Visipaque 32 (12/13/17 12:04) Red Blood Cells (Rbc) (12/13/17 12:10) Mri Brain W/O Contrast (12/13/17 ) Echo 2d Comp With Doppler (12/13/17 ) Lipid Profile (12/13/17 14:47) Admit To Inpatient (12/13/17 ) Vital Signs (Adult) Q4H (12/13/17 15:16) Nih Stroke Scale - Nihss .On admission and discharge (12/13/17 15:16) Neuro Checks Q4H (12/13/17 15:16) Notify Dr: Other (12/13/17 15:16) Ot Request For Service (12/13/17 15:16) Consult Pt Eval & Treat (12/13/17 15:16) Speech Therapy Consult-Eval/Tx (12/13/17 15:16) Case Management Consult (12/13/17 ) Activity Bed Rest (12/13/17 15:16) Nursing Bedside Swallow Assess .ONCE (12/13/17 15:16) Scd Bilateral/Knee High CARLEY.QSHIFT (12/13/17 15:16) Diet Npo (12/13/17 Dinner) Hemoglobin (Hgb) A1c (12/13/17 15:16) Lipid Profile (12/14/17 06:00) Resp Oxygen Nc Stroke (12/13/17 ) ^ Hold Medication (12/13/17 15:16) Sodium Chloride 0.9% Flush (Ns Flush) (12/13/17 21:00) Sodium Chloride 0.9% Flush (Ns Flush) (12/13/17 15:30) Sodium Chlor 0.9% 1000 Ml Inj (Ns 1000 M (12/13/17 15:16) Enalaprilat Inj (Vasotec Inj) (12/13/17 15:30) Aspirin Chew (Aspirin Chew) (12/13/17 16:00) Atorvastatin (Lipitor) (12/13/17 21:00) Bedside Glucose CARLEY.CSUGAR (12/13/17 15:16) ^ Discontinue Insulin Orders (12/13/17 15:16) Insulin Aspart Supplemtl Scale (Novolog (12/13/17 17:00) Dextrose 50% In Alejandra (Vial) Inj (D50w (Vi (12/13/17 15:30) Glucagon Inj (Glucagon Inj) (12/13/17 15:30) Consult Rehab Medicine (12/13/17 15:16) Evp And Chief Operating Officer / Telemetry CARLEY.Q8H (12/13/17 15:16) Consult Stroke Navigator (12/13/17 ) Scd Bilateral/Knee High CARLEY.BID (12/13/17 15:16) Inpatient Certification (12/13/17 ) Metoclopramide Inj (Reglan Inj) (12/13/17 15:30) Comprehensive Metabolic Panel (12/14/17 06:00) Complete Blood Count With Diff (12/14/17 06:00) Case Management Consult (12/13/17 15:20) Naloxone Inj (Narcan Inj) (12/13/17 15:30) Docusate Sodium-Senna ([place]-Colace) (12/13/17 21:00) Magnesium Hydroxide Liq (Milk Of Magnesi (12/13/17 15:30) Sennosides (Senokot) (12/13/17 15:30) Bisacodyl Supp (Dulcolax Supp) (12/13/17 15:30) Lactulose Liq (Lactulose Liq) (12/13/17 15:30) Ammonia (12/13/17 15:29) Lactulose Liq (Lactulose Liq) (12/13/17 21:00) Nadolol (Corgard) (12/14/17 09:00) Potassium Chloride (Kcl) (12/14/17 09:00) Rifaximin (Xifaxan) (12/13/17 18:00) Temazepam (Restoril) (12/13/17 15:30) Ferrous Sulfate (Ferrous Sulfate) (12/14/17 09:00) Paroxetine (Paxil) (12/14/17 09:00) Famotidine (Pepcid) (12/13/17 21:00) (Hub Use Only)Inp Phy Cons/Ref (12/13/17 ) Pill Splitter (Pill Splitter) (12/13/17 16:15) Labs Laboratory Tests Test 12/13/17 12:10 12/13/17 13:20 12/13/17 15:55 White Blood Count 3.0 TH/MM3 Red Blood Count 4.30 MIL/MM3 Hemoglobin 14.4 GM/DL Bedside Hemoglobin 13.6 G/DL Hematocrit 42.7 % Bedside Hematocrit 40.0 % Mean Corpuscular Volume 99.1 FL Mean Corpuscular Hemoglobin 33.4 PG Mean Corpuscular Hemoglobin Concent 33.7 % Red Cell Distribution Width 14.4 % Platelet Count 55 TH/MM3 Mean Platelet Volume 10.1 FL Neutrophils (%) (Auto) 39.1 % Lymphocytes (%) (Auto) 49.4 % Monocytes (%) (Auto) 8.2 % Eosinophils (%) (Auto) 2.7 % Basophils (%) (Auto) 0.6 % Neutrophils # (Auto) 1.2 TH/MM3 Lymphocytes # (Auto) 1.5 TH/MM3 Monocytes # (Auto) 0.2 TH/MM3 Eosinophils # (Auto) 0.1 TH/MM3 Basophils # (Auto) 0.0 TH/MM3 CBC Comment AUTO DIFF Differential Comment AUTO DIFF CONFIRMED Platelet Estimate LOW Platelet Morphology Comment NORMAL Ovalocytes 1+ Prothrombin Time 12.7 SEC Prothromb Time International Ratio 1.3 RATIO Activated Partial Thromboplast Time 26.7 SEC Fibrinogen 179 mg/dL Bedside Sodium 144 MMOL/L Bedside Potassium 3.8 MMOL/L Bedside Chloride 105 MMOL/L Bedside Blood Urea Nitrogen 4 MG/DL Bedside Creatinine 0.5 MG/DL Bedside Glucose 114 MG/DL Total Creatine Kinase 99 U/L Troponin I LESS THAN 0.02 NG/ML Urine Color YELLOW Urine Turbidity HAZY Urine pH 8.0 Urine Specific [place] 1.016 Urine Protein NEG mg/dL Urine Glucose (UA) NEG mg/dL Urine Ketones NEG mg/dL Urine Occult Blood NEG Urine Nitrite NEG Urine Bilirubin NEG Urine Urobilinogen 4.0 MG/DL Urine Leukocyte Esterase NEG Urine RBC LESS THAN 1 /hpf Urine WBC 3 /hpf Urine Squamous Epithelial Cells 6 /hpf Urine Amorphous Sediment RARE Urine Bacteria MANY /hpf Urine Mucus FEW /lpf Urine Opiates Screen NEG Urine Barbiturates Screen NEG Urine Amphetamines Screen NEG Urine Benzodiazepines Screen NEG Urine Cocaine Screen NEG Urine Cannabinoids Screen NEG Ammonia 31 MCMOL/L MDM Medical Decision Making Medical Screen Exam Complete: Yes Emergency Medical Condition: Yes Medical Record Reviewed: Yes Differential Diagnosis Ischemic stroke, hemorrhagic stroke, TIA Narrative Course I have reviewed the patient's electronic medical record. Reviewed her hematology consultation from November 2017. Last platelet count 62,000 Stroke alert protocol instituted Emergent brain CT is negative for hemorrhage I reviewed the case with our neurologist head and neck surgeon Labs are still pending. She does not recommend TPA. She will be a high risk for bleeding given her thrombocytopenia and alcoholism and her deficits are pretty subtle at this point. She recommends CTA of the head and neck so those will be done now Initial blood pressure 196 systolic, utilizing permissive hypertension and will treat if it is over 220 systolic EKG shows sinus bradycardia at 58. Extended cardiac monitoring reveals sinus rhythm without ectopy Brain CT is negative CBC shows chronic thrombocytopenia as expected Metabolic studies reviewed case discussed with medical residents will admit Critical Care Narrative Aggregate critical care time was 40 minutes. Time to perform other separately billable procedures was not included in the critical care time. My time did not include minutes spent treating any other patients simultaneously or on activities that did not directly contribute to the patient's treatment. The services I provided to this patient were to treat and/or prevent clinically significant deterioration that could result in: Permanent neurologic deficit, brain stem herniation, cardiopulmonary arrest I provided critical care services requiring my management, as noted below: Chart data review, documentation time, medication orders and management, vital sign assessments/reviewing monitor data, ordering and reviewing lab tests, ordering and interpreting/reviewing x-rays and diagnostic studies, care of the patient and discussion of the patient with the admitting physicians. Diagnosis Primary Impression: Acute ischemic stroke Additional Impression: Thrombocytopenia Admitting Information Admitting Physician Requests: Matt Colorado MD December 13, 2017 12:58
[2017-12-13 13:08] LABS: INTERNATIONAL NORMALIZED RATIO 1.3 RATIO; PROTHROMBIN TIME - PATIENT 12.7 SEC (9.8-11.6)
[2017-12-13 13:10] LABS: TROPONIN I LESS THAN 0.02 NG/ML (0.02-0.05)
[2017-12-13 13:27] LABS: OVALOCYTES 1+ (NORMAL)
[2017-12-13 13:37] LABS: AMORPHOUS SEDIMENT, URINE RARE; BACTERIA, URINE MANY /hpf; BILIRUBIN, URINE NEG (NEG); BLOOD, URINE NEG (NEG); GLUCOSE,URINE NEG (NEG); KETONE, URINE NEG (NEG); MUCUS URINE FEW /lpf (OCC); NITRITE,URINE NEG (NEG); SQUAMOUS EPITHELIAL CELL URINE 6 /hpf (0-5); URINE COLOR YELLOW (YELLW/STRAW); URINE LEUKOCYTE ESTERASE NEG (NEG)
--- NOTE | 2017-12-13 14:06 | RADRPT ---
EXAM DATE/TIME: 12/13/2017 13:04 [facility] COMPARISON: No previous studies available for comparison. INDICATIONS : Stroke alert; left facial droop and left arm weakness. IV CONTRAST: 65 cc Visipaque (iodixanol) IV ; Cumulative dose for multiple exams. RADIATION DOSE: 10.85 CTDIvol (mGy) ; Reconstructed from previous dataset, no dose MEDICAL HISTORY : Dementia. SURGICAL HISTORY : Non-responsive. ENCOUNTER: Initial ACUITY: 1 day PAIN SCALE: Non-responsive LOCATION: cranial TECHNIQUE: Volumetric scanning was performed using a multi-row detector CT scanner. The data was post processed with a variety of visualization algorithms including full volume maximum intensity projection, multi -planar sliding thin slab reformation, curved planar reformation, and surface rendering techniques. Using automated exposure control and adjustment of the mA and/or kV according to patient size, radiat ion dose was kept as low as reasonably achievable to obtain optimal diagnostic quality images. DICO M format image data is available electronically for review and comparison. FINDINGS: There is excellent visualization of the major intracranial arteries out to the second-order branch ve ssels. There is no evidence for aneurysm, vessel truncation or stenosis, and no evidence for vascula r malformation. Both vertebral arteries are patent. 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 [place]-like configuration of the distal ba silar but no kendrick aneurysmal disease CONCLUSION: Intracranial vessels are all patent without embolus. Anatomic variant of the [place] a s detailed above Jenaro Kumar MD on December 13, 2017 at 13:59 Board Certified Radiologist. This report was verified electronically.
--- NOTE | 2017-12-13 14:11 | RADRPT ---
EXAM DATE/TIME: 12/13/2017 13:04 [facility] COMPARISON: No previous studies available for comparison. INDICATIONS : Stroke alert; left side facial droop, left arm weakness. IV CONTRAST: 65 cc Omnipaque 350 (iohexol) IV ; Cumulative dose for multiple exams. RADIATION DOSE: 10.85 CTDIvol (mGy) ; Combined studies - Brain/Cervical Spine MEDICAL HISTORY : Dementia. SURGICAL HISTORY : None. ENCOUNTER: Initial ACUITY: 1 day PAIN SCALE: Non-responsive LOCATION: neck Elevated flow velocities and ICA/CCA ratios have been found to correlate with increased degrees of vessel stenosis, calculated as percentage of diameter relative to a normal segment of distal ICA/CCA. TECHNIQUE: Volumetric scanning was performed using a multirow detector CT scanner. The data was post processed with a variety of visualization algorithms including full-volume maximum intensity projection, multip lanar sliding thin-slab reformation, curved-planar reformation, and surface-rendering techniques. Us ing automated exposure control and adjustment of the mA and/or kV according to patient size, radiatio n dose was kept as low as reasonably achievable to obtain optimal diagnostic quality images. DICOM f ormat image data is available electronically for review and comparison. FINDINGS: AORTIC ARCH: There is a three-vessel origin of the great vessels from the aorta. Scattered atherosclerotic calcifi cation of the arch vessels are patent. RIGHT CAROTID: The common carotid artery is intact. Atherosclerotic calcification in the carotid bulb extending into the internal with no significant stenosis. The external carotid artery is intact. LEFT CAROTID: The common carotid artery is intact. Atherosclerotic calcification of the carotid bulb extending into the internal with no significant stenosis. The external carotid artery is intact. VERTEBRALS: The vertebral arteries have a symmetric diameter. No stenotic lesions are seen. CONCLUSION: 1. Atherosclerotic calcification in the arch, proximal arch vessels and both carotid bifurcations. 2. However, arch and cervical vessels are patent throughout with no significant stenosis. Jenaro Kumar MD on December 13, 2017 at 14:04 Board Certified Radiologist. This report was verified electronically.
--- NOTE | 2017-12-13 15:02 | MB ---
cc: Lisa Alaniz MD DATE: 12/13/2017 HISTORY OF PRESENT ILLNESS: She came in as a stroke alert. She came in with some possible left-sided weakness, left facial droop, had some vomiting at 11:00 in the afternoon. She had a CT that was unremarkable. She has a significant past medical history of thrombocytopenia, alcoholic liver disease. She lives in a group home, no longer drinking. She has undergone CT, CTA. When I went to see her, her symptoms have resolved. PAST MEDICAL HISTORY: As stated. FAMILY HISTORY: Cardiac disease. SOCIAL HISTORY: She lives in a group home. History of ethanol abuse. A smoker of about a pack a day. No substance abuse. ALLERGIES: NONE REPORTED. HOME MEDICATIONS: Please refer to MAR, but she is not on any antiplatelets. PHYSICAL EXAMINATION: VITAL SIGNS: Temperature 97.9, pulse 58, respiratory rate 18, blood pressure 145/63, satting at 95% on 2 liters nasal cannula. NECK: Supple, no bruits. HEART: Regular. NEUROLOGIC: She is awake and alert. Her speech is intact. Her pupils are reactive. There may be questionable mild left facial asymmetry. She keeps her left eye closed but extraocular muscles are intact. Tongue midline. Facial sensation normal. Motor carcamo, I do not see any drift or leg lag. Toes withdraw. Reflexes trace to 1+. Sensory normal. Cerebellar normal. Gait is withheld. LABORATORY DATA: Reviewed. White count is 3. Platelets of 55,000. Coag panel: PT 12.7, fibrinogen 179. Chemistries: Glucose 114. Toxicology was negative. Urine hazy, no culture indicated. IMAGING STUDIES: CT head was unremarkable. Neck CTA: Some calcification but no significant stenosis. CTA of the [place]: Anatomic variant of the [place] but otherwise unremarkable. IMPRESSION AND RECOMMENDATIONS: Questionable stroke versus transient ischemic attack. Her NIH was a 4 at onset. Given her thrombocytopenia and her improving symptoms, I do not feel she is a candidate for TPA. We will continue to monitor her. Get an MRI of the brain. PT, OT, speech therapy. Check an echo. Get a lipid panel. SCDs and consider low dose baby aspirin daily but would have to watch her platelets closely. She is a high risk for bleeding. Continue current care. MD BRANDY Ortiz/SARAH , 02:47 PM , 03:01 PM
--- NOTE | 2017-12-13 15:21 | HHI.HP ---
HPI Service Family Medicine Primary Care Physician Unknown Admission Diagnosis Diagnoses: International Travel<30 Days: No Contact w/Intl Traveler<30days: No Known Affected Area: No History of Present Illness 72 yo F with PMH of alcoholic cirrhosis, thrombocytopenia who comes to the ED as a stroke alert. She is a resident of [facility]. Was in normal state of health this AM, but after smoking a cigarette around 11:00 AM she felt like she couldn't stand up due to dizziness. She vomited at that time and is also endorsing blurry vision that is worse in her L eye. Per report she had left sided weakness but she denies this. Denies headache, chest pain, SOB. She does have L sided facial droop as well. (Bennie Fitch MD R1) Review of Systems Constitutional: COMPLAINS OF: Dizziness, DENIES: Fever, Chills Eyes: COMPLAINS OF: Blurred vision Respiratory: DENIES: Cough, Wheezing Cardiovascular: DENIES: Chest pain, Palpitations Gastrointestinal: COMPLAINS OF: Nausea, Vomiting, DENIES: Abdominal pain, Bloody stools, Constipation, Diarrhea Genitourinary: DENIES: Hematuria, Dysuria Musculoskeletal: DENIES: Joint pain, Muscle aches Hematologic/lymphatic: COMPLAINS OF: Bruising, DENIES: Lymphadenopathy Neurologic: DENIES: Headache, Localized weakness, Paresthesias Psychiatric: DENIES: Confusion (Bennie Fitch MD R1) Past Family Social History Past Medical History Recently diagnosed cirrhosis GERD HTN Thrombocytopenia Past Surgical History Tubal ligation R shoulder surgery (Bennie Fitch MD R1) Allergies: Coded Allergies: No Known Allergies (Verified Allergy, Unknown, 12/13/17) Family History Noncontributory Social History Lives at [facility] Has 2 children Former heavy drinker, hasn't in 1.5 years 1ppd smoker for 30 years (Bennie Fitch MD R1) Physical Exam Vital Signs Vital Signs Date Time Temp Pulse Resp B/P (MAP) Pulse Ox O2 Delivery O2 Flow Rate FiO2 12/13/17 14:46 56 18 136/64 (88) 95 Nasal Cannula 2.00 12/13/17 13:01 58 18 145/63 (90) 95 Nasal Cannula 2.00 12/13/17 12:39 94 Nasal Cannula 2.00 12/13/17 12:37 57 18 196/77 (116) 94 Nasal Cannula 2.00 12/13/17 12:30 94 Nasal Cannula 2.00 12/13/17 12:30 94 2.00 12/13/17 12:15 56 18 94 12/13/17 12:12 97.9 56 18 194/86 (122) 94 Physical Exam GENERAL: This is a well-nourished, well-developed patient, in no apparent distress. SKIN: No rashes, ecchymoses or lesions. Cool and dry. HEAD: Atraumatic. Normocephalic. No temporal or scalp tenderness. EYES: Pupils equal round and reactive. No scleral icterus. No injection or drainage. ENT: Nose without bleeding, purulent drainage or septal hematoma. Throat without erythema, tonsillar hypertrophy or exudate. Uvula midline. Airway patent. NECK: Trachea midline. No JVD or lymphadenopathy. Supple, nontender, no meningeal signs. CARDIOVASCULAR: Regular rate and rhythm without murmurs, gallops, or rubs. RESPIRATORY: Clear to auscultation. Breath sounds equal bilaterally. No wheezes , rales, or rhonchi. GASTROINTESTINAL: Abdomen soft, non-tender, nondistended. No hepato-splenomegaly , or palpable masses. No guarding. MUSCULOSKELETAL: Extremities without clubbing, cyanosis, or edema. No joint tenderness, effusion, or edema noted. No calf tenderness. Negative Homans sign bilaterally. NEUROLOGICAL: Awake and alert. Cranial nerves II through XII intact except for L sided facial droop, asymmetric smile. She keeps her L eye closed during the interview but is able to open it on command. EOMI. Motor and sensory grossly within normal limits. Five out of 5 muscle strength in all muscle groups. Questionable slurred speech. Laboratory Laboratory Tests Test 12/13/17 12:10 12/13/17 13:20 White Blood Count 3.0 Red Blood Count 4.30 Hemoglobin 14.4 Bedside Hemoglobin 13.6 Hematocrit 42.7 Bedside Hematocrit 40.0 Mean Corpuscular Volume 99.1 Mean Corpuscular Hemoglobin 33.4 Mean Corpuscular Hemoglobin Concent 33.7 Red Cell Distribution Width 14.4 Platelet Count 55 Mean Platelet Volume 10.1 Neutrophils (%) (Auto) 39.1 Lymphocytes (%) (Auto) 49.4 Monocytes (%) (Auto) 8.2 Eosinophils (%) (Auto) 2.7 Basophils (%) (Auto) 0.6 Neutrophils # (Auto) 1.2 Lymphocytes # (Auto) 1.5 Monocytes # (Auto) 0.2 Eosinophils # (Auto) 0.1 Basophils # (Auto) 0.0 CBC Comment AUTO DIFF Differential Comment AUTO DIFF CONFIRMED Platelet Estimate LOW Platelet Morphology Comment NORMAL Ovalocytes 1+ Prothrombin Time 12.7 Prothromb Time International Ratio 1.3 Activated Partial Thromboplast Time 26.7 Fibrinogen 179 Bedside Sodium 144 Bedside Potassium 3.8 Bedside Chloride 105 Bedside Blood Urea Nitrogen 4 Bedside Creatinine 0.5 Bedside Glucose 114 Total Creatine Kinase 99 Troponin I LESS THAN 0.02 Urine Color YELLOW Urine Turbidity HAZY Urine pH 8.0 Urine Specific Draper 1.016 Urine Protein NEG Urine Glucose (UA) NEG Urine Ketones NEG Urine Occult Blood NEG Urine Nitrite NEG Urine Bilirubin NEG Urine Urobilinogen 4.0 Urine Leukocyte Esterase NEG Urine RBC LESS THAN 1 Urine WBC 3 Urine Squamous Epithelial Cells 6 Urine Amorphous Sediment RARE Urine Bacteria MANY Urine Mucus FEW Urine Opiates Screen NEG Urine Barbiturates Screen NEG Urine Amphetamines Screen NEG Urine Benzodiazepines Screen NEG Urine Cocaine Screen NEG Urine Cannabinoids Screen NEG (Bennie Fitch MD R1) Result Diagram: 12/13/17 1210 Imaging Last 24 hours Impressions Neck CTA 12/13/17 1237 Signed Impressions: Service Date/Time: Wednesday, December 13, 2017 13:04 - CONCLUSION: 1. Atherosclerotic calcification in the arch, proximal arch vessels and both carotid bifurcations. 2. However, arch and cervical vessels are patent throughout with no significant stenosis. Jenaro Kumar MD Head CTA 12/13/17 1237 Signed Impressions: Service Date/Time: Wednesday, December 13, 2017 13:04 - CONCLUSION: Intracranial vessels are all patent without embolus. Anatomic variant of the [place] as detailed above Jenaro Kumar MD Head CT 12/13/17 0000 Signed Impressions: Service Date/Time: Wednesday, December 13, 2017 12:10 - CONCLUSION: No acute intracranial findings Candido Jeronimo MD (Bennie Fitch MD R1) Caprini VTE Risk Assessment Caprini VTE Risk Assessment: Mod/High Risk (score >= 2) Caprini Risk Assessment Model Point Value = 1 Point Value = 2 Point Value = 3 Point Value = 5 Age 41-60 Minor surgery BMI > 25 kg/m2 Swollen legs Varicose veins or History of unexplained or recurrent spontaneous Oral contraceptives or hormone replacement Sepsis (< 1 month) Serious lung disease, including pneumonia (< 1 month) Abnormal pulmonary function Acute myocardial infarction Congestive heart failure (< 1 month) History of inflammatory bowel disease Medical patient at bed rest Age 61-74 Arthroscopic surgery Major open surgery (> 45 min) Laparoscopic surgery (> 45 min) Malignancy Confined to bed (> 72 hours) Immobilizing plaster cast Central venous access Age >= 75 History of VTE Family history of VTE Factor V Leiden Prothrombin [id number] Lupus anticoagulant Anticardiolipin antibodies Elevated serum homocysteine Heparin-induced thrombocytopenia Other congenital or acquired thrombophilia Stroke (< 1 month) Elective arthroplasty Hip, pelvis, or leg fracture Acute spinal cord injury (< 1 month) Prophylaxis Regimen Total Risk Factor Score Risk Level Prophylaxis Regimen 0-1 Low Early ambulation 2 Moderate Order ONE of the following: *Sequential Compression Device (SCD) *Heparin 5000 units SQ BID 3-4 Higher Order ONE of the following medications: *Heparin 5000 units SQ TID *Enoxaparin/Lovenox 40 mg SQ daily (WT < 150 kg, CrCl > 30 mL/min) *Enoxaparin/Lovenox 30 mg SQ daily (WT < 150 kg, CrCl > 10-29 mL/min) *Enoxaparin/Lovenox 30 mg SQ BID (WT < 150 kg, CrCl > 30 mL/min) AND/OR *Sequential Compression Device (SCD) 5 or more Highest Order ONE of the following medications: *Heparin 5000 units SQ TID (Preferred with Epidurals) *Enoxaparin/Lovenox 40 mg SQ daily (WT < 150 kg, CrCl > 30 mL/min) *Enoxaparin/Lovenox 30 mg SQ daily (WT < 150 kg, CrCl > 10-29 mL/min) *Enoxaparin/Lovenox 30 mg SQ BID (WT < 150 kg, CrCl > 30 mL/min) AND *Sequential Compression Device (SCD) (Bennie Fitch MD R1) Assessment and Plan Assessment and Plan 72 yo F with PMH of alcoholic cirrhosis, HTN, thrombocytopenia presenting to the ED as a stroke alert. At 11:00 AM on morning of admission she suddenly became dizzy, vomited, and had reported L sided weakness. Has possible mild left sided facial droop, slurred speech. CT Head on admission negative for acute bleed. Neurology consulted on admission and patient will not undergo TPA at this time. Admitting for further workup. Code Status Full code Discussed Condition With Dr. Raul Wallace (Bennie Fitch MD R1) Problem List: (1) CVA (cerebral vascular accident) ICD Codes: I63.9 - Cerebral infarction, unspecified Plan: Patient with acute onset of dizziness, nausea, blurry vision and reported left-sided weakness. Mild facial droop, possible slurred speech on admission CT head negative for acute bleed on admission Neck CTA on admission showed atherosclerotic Calcification in the arch, proximal arch vessels in both carotid bifurcations but no significant stenosis in the cervical vessels Head CTA showed all intracranial vessels patent without embolus Neurology consulted. Elected against TPA as patient has a history of thrombocytopenia and symptoms were improving on admission MRI brain pending, 2D echo pending Lipid profile within normal limits Hemoglobin A1c pending PT, OT, speech therapy Aspirin 81 mg daily Currently on Lipitor 10 mg daily, will continue Permissive hypertension Telemetry Normal saline at 110 mm/h (2) Cirrhosis ICD Codes: K74.60 - Unspecified cirrhosis of liver Plan: Known history of cirrhosis On rifaximin, lactulose daily Ammonia level within normal limits on admission No further workup at this time (3) Thrombocytopenia ICD Codes: D69.6 - Thrombocytopenia, unspecified Plan: Patient with a known history of thrombocytopenia Platelet count of 55 on admission No signs of acute bleeding We will continue to monitor (4) GERD (gastroesophageal reflux disease) ICD Codes: K21.9 - Gastro-esophageal reflux disease without esophagitis Plan: On history of GERD Continue home Pepcid (5) FEN Plan: Normal saline at 110 mL/h Will replete electrolytes as needed Currently n.p.o. until patient passes swallow study Holding DVT prophylaxis as patient has history of thrombocytopenia and is at risk for bleeding. SCDs (Bennie Fitch MD R1) Problem List: (1) CVA (cerebral vascular accident) ICD Codes: I63.9 - Cerebral infarction, unspecified Plan: Patient with acute onset of dizziness, nausea, blurry vision and reported left-sided weakness. Mild facial droop, possible slurred speech on admission CT head negative for acute bleed on admission Neck CTA on admission showed atherosclerotic Calcification in the arch, proximal arch vessels in both carotid bifurcations but no significant stenosis in the cervical vessels Head CTA showed all intracranial vessels patent without embolus Neurology consulted. Elected against TPA as patient has a history of thrombocytopenia and symptoms were improving on admission MRI brain pending, 2D echo pending Lipid profile within normal limits Hemoglobin A1c pending PT, OT, speech therapy Aspirin 81 mg daily Currently on Lipitor 10 mg daily, will continue Permissive hypertension Telemetry Normal saline at 110 mm/h (2) Cirrhosis ICD Codes: K74.60 - Unspecified cirrhosis of liver Plan: Known history of cirrhosis On rifaximin, lactulose daily Ammonia level within normal limits on admission No further workup at this time (3) Thrombocytopenia ICD Codes: D69.6 - Thrombocytopenia, unspecified Plan: Patient with a known history of thrombocytopenia Platelet count of 55 on admission No signs of acute bleeding We will continue to monitor (4) GERD (gastroesophageal reflux disease) ICD Codes: K21.9 - Gastro-esophageal reflux disease without esophagitis Plan: On history of GERD Continue home Pepcid (5) FEN Plan: Normal saline at 110 mL/h Will replete electrolytes as needed Currently n.p.o. until patient passes swallow study Holding DVT prophylaxis as patient has history of thrombocytopenia and is at risk for bleeding. SCDs See the residents documentation for details. I saw and evaluated the patient regarding the jefferson portions of this evaluation and agree with the residents findings and plans as written. Parts of this note were created using [employer] voice recognition software program. While efforts were made to correct any mistakes made by this software, some mistakes, errors, and omissions may remain in the final note that were not caught when the note was originally created. Plan of care was discussed and agreed upon with the patient as specifically documented in the above note. An opportunity to ask questions with explanation was provided. Patient voiced understanding on all information reviewed and discussed. (Norberto Wallace MD) Bennie Fitch MD R1 December 13, 2017 15:21 Norberto Wallace MD December 16, 2017 11:24
[2017-12-13] MEDS ORDERED: NALOXONE HCL 0.4 MG/ML AMP IV PUSH PRN (15:30)
[2017-12-13] MEDS ORDERED: SENNOSIDES 8.6 MG TAB PO PRN (15:30)
[2017-12-13] MEDS ORDERED: GLUCAGON 1 MG/ML VIAL OTHER PRN (15:30)
[2017-12-13] MEDS ORDERED: SODIUM CHLORIDE 0.9% FLUSH 10 ML FLUSH IV FLUSH PRN (15:30)
[2017-12-13] MEDS ORDERED: MAGNESIUM HYDROXIDE SUSP 30 ML CUP PO PRN (15:30)
[2017-12-13] MEDS ORDERED: METOCLOPRAMIDE HCL 10 MG/2 ML VIAL IV PUSH PRN (15:30)
[2017-12-13] MEDS ORDERED: BISACODYL 10 MG SUPP RECTAL PRN (15:30)
[2017-12-13] MEDS ORDERED: DEXTROSE 50% IN WATER 50 ML VIAL(D50) IV PUSH PRN (15:30)
[2017-12-13] MEDS ORDERED: LACTULOSE SYRUP 20 GM/30 ML CUP PO PRN (15:30)
[2017-12-13] MEDS: SODIUM CHLOR 0.9% 1000 ML INJ 1,000 ML IV SCH ×2 (15:48→22:04)
[2017-12-13] MEDS: ASPIRIN 81 MG CHEW TAB PO SCH (15:58)
[2017-12-13] MEDS ORDERED: PILL SPLITTER OTHER PRN (16:15)
--- NOTE | 2017-12-13 16:47 | RADRPT ---
EXAM DATE/TIME: 12/13/2017 16:11 [facility] COMPARISON: CT BRAIN W/O CONTRAST, January 05, 2016, 11:43. INDICATIONS : Stroke alert. MEDICAL HISTORY : Hypertension. SURGICAL HISTORY : Foot sx, bowel obstruction. ENCOUNTER: Initial ACUITY: 2 day PAIN SCORE: 0/10 LOCATION: head TECHNIQUE: Multiplanar, multisequence MRI of the brain was performed without contrast. FINDINGS: CEREBRUM: The ventricles are normal for age. No evidence of midline shift, mass lesion, hemorrhage or acute in farction. No extraaxial fluid collections are seen. The pituitary gland and suprasellar cistern are normal in configuration. WHITE MATTER: Scattered areas of white matter T2 prolongation in the periventricular and subcortical regions. At le ast a couple of punctate areas of old microhemorrhage in the right hemisphere. POSTERIOR FOSSA: The cerebellum and brainstem are intact. The 4th ventricle is midline. The cerebellopontine angle is unremarkable. The cerebellar tonsils are normal in position. DIFFUSION IMAGING: No focal areas of restricted diffusion are seen. No evidence of acute infarction. EXTRACRANIAL: The visualized portions of the orbits and paranasal sinuses are unremarkable. CONCLUSION: No evidence of acute stroke. Chronic appearing white matter signal changes and a couple of areas of o ld microhemorrhage. Candido Jeronimo MD on December 13, 2017 at 16:42 Board Certified Radiologist. This report was verified electronically.
[2017-12-13] MEDS: INSULIN ASPART SUPPLEMENTAL SCALE SQ SCH ×2 (17:00→21:00)
--- NOTE | 2017-12-13 17:17 | EKG ---
Date Performed: 12/13/2017 Time Performed: 12:55:54 PTAGE: 72 years EKG: SINUS BRADYCARDIA DIFFUSE ST CHANGES PROLONGED QT INTERVAL ABNORMAL ECG PREVIOUS TRACING : 05/04/2017 12.53 Compared to previous tracing, QTc increased DOCTOR: Man Zepeda Interpretating Date/Time 12/13/2017 17:16:18
[2017-12-13 17:55] LABS: CHOLESTEROL/ HDL RATIO 2.81 RATIO
[2017-12-13] MEDS: RIFAXIMIN 200 MG TAB PO SCH (18:31)
[2017-12-13] MEDS: SODIUM CHLORIDE 0.9% FLUSH 10 ML FLUSH IV FLUSH SCH (21:00)
[2017-12-13] MEDS: LACTULOSE SYRUP 20 GM/30 ML CUP PO SCH (21:00)
[2017-12-13] MEDS: DOCUSATE SODIUM 50 MG/SENNA 8.6 MG TAB PO SCH (21:00)
[2017-12-13] MEDS: TEMAZEPAM 15 MG CAP PO PRN (21:57)
[2017-12-13] MEDS: ATORVASTATIN 10 MG TAB PO SCH (21:58)
[2017-12-13] MEDS: FAMOTIDINE 20 MG TAB PO SCH (21:58)
[2017-12-13 22:51] LABS: HEMOGLOBIN A1C 4.6 % (4.3-6.0)
[2017-12-14] VITALS (13 sets, daily range): BP systolic 127–170; BP diastolic 62–79; PULSE 57–76; RESP 18–19; TEMP 97.6–99; O2SAT 90–98
[2017-12-14 07:26] LABS: AUTOMATED NEUTROPHIL # 3.3 TH/MM3 (1.8-7.7); BASOPHIL % 0.8 % (0.0-2.0); EOSINOPHIL # 0.1 TH/MM3 (0-0.4); EOSINOPHIL % 1.3 % (0.0-4.0); HEMATOCRIT 39.7 % (35.0-46.0); HEMOGLOBIN 13.6 GM/DL (11.6-15.3); LYMPH % 18.2 % (9.0-44.0); LYMPHOCYTE # 0.8 TH/MM3 (1.0-4.8); MEAN CELL VOLUME 98.7 FL (80.0-100.0); MEAN CORPUSCULAR HEMOGLOBIN 33.7 PG (27.0-34.0); MEAN CORPUSCULAR HGB CONC 34.1 % (32.0-36.0); MEAN PLATELET VOLUME 10.9 FL (7.0-11.0); MONO % 4.4 % (0.0-8.0); MONOCYTE # 0.2 TH/MM3 (0-0.9); NEUT % 75.3 % (16.0-70.0); PLATELET COUNT 41 TH/MM3 (150-450); RED BLOOD COUNT 4.03 MIL/MM3 (4.00-5.30); RED CELL DISTRIBUTION WIDTH 14.8 % (11.6-17.2); WHITE BLOOD COUNT 4.4 TH/MM3 (4.0-11.0)
[2017-12-14 07:58] LABS: ALBUMIN 2.7 GM/DL (3.4-5.0); AST (GOT) 53 U/L (15-37); BICARBONATE 25.1 MEQ/L (21.0-32.0); BLOOD UREA NITROGEN 5 MG/DL (7-18); CALCIUM 7.9 MG/DL (8.5-10.1); CHLORIDE 110 MEQ/L (98-107); CREATININE 0.44 MG/DL (0.50-1.00); GLOMERULAR FILTRATION RATE 141 ML/MIN (>89); GLUCOSE,RANDOM 88 MG/DL (74-106); SODIUM (NA) 142 MEQ/L (136-145)
[2017-12-14 07:59] LABS: ALT (GPT) 30 U/L (10-53)
[2017-12-14] MEDS: INSULIN ASPART SUPPLEMENTAL SCALE SQ SCH ×4 (08:00→21:00)
[2017-12-14 08:01] LABS: ALKALINE PHOSPHATASE 121 U/L (45-117); TOTAL PROTEIN 5.5 GM/DL (6.4-8.2)
[2017-12-14] MEDS: SODIUM CHLORIDE 0.9% FLUSH 10 ML FLUSH IV FLUSH SCH ×2 (08:25→21:00)
[2017-12-14] MEDS: DOCUSATE SODIUM 50 MG/SENNA 8.6 MG TAB PO SCH ×2 (08:26→21:06)
[2017-12-14] MEDS: NADOLOL 20 MG TAB PO SCH (08:26)
[2017-12-14] MEDS: FAMOTIDINE 20 MG TAB PO SCH ×2 (08:26→21:13)
[2017-12-14] MEDS: PARoxetine HCL 20 MG TAB PO SCH (08:27)
[2017-12-14] MEDS: RIFAXIMIN 200 MG TAB PO SCH ×3 (08:27→17:04)
[2017-12-14] MEDS: LACTULOSE SYRUP 20 GM/30 ML CUP PO SCH ×2 (08:29→21:00)
[2017-12-14] MEDS: SODIUM CHLOR 0.9% 1000 ML INJ 1,000 ML IV SCH ×2 (08:31→17:03)
[2017-12-14] MEDS: POTASSIUM CHLORIDE 20 MEQ CONTROLLED RELEASE TAB PO SCH (08:33)
[2017-12-14] MEDS: ASPIRIN 81 MG CHEW TAB PO SCH (08:58)
[2017-12-14] MEDS ORDERED: FERROUS SULFATE 325 MG (65 MG ELEMENTAL IRON) TAB PO SCH (09:00)
[2017-12-14] MEDS: MECLIZINE HCL 25 MG TAB PO SCH ×2 (09:18→17:04)
--- NOTE | 2017-12-14 11:20 | HHI.FPPN ---
Subjective Remarks No acute events overnight. Patient states that she continues to feel dizzy when standing. Denies dizziness when sitting or laying flat. She states that the sensation is more of lightheadedness as opposed to the room spinning. Denies ringing in her ears. Denies chest pain, shortness of breath, nausea or vomiting. (Bennie Fitch MD R1) Objective Vitals Vital Signs Date Time Temp Pulse Resp B/P (MAP) Pulse Ox O2 Delivery O2 Flow Rate FiO2 12/14/17 09:56 69 12/14/17 08:54 98.3 76 18 168/74 (105) 90 165/71 (102) 131/66 (87) 12/14/17 04:30 97.6 60 19 145/72 (96) 98 12/14/17 01:38 98 Nasal Cannula 2.00 12/14/17 01:00 57 12/14/17 00:30 98.8 64 19 150/69 (96) 97 12/13/17 21:30 97.9 57 18 164/75 (104) 98 12/13/17 18:41 12/13/17 17:35 56 18 142/63 (89) 99 Nasal Cannula 2.00 12/13/17 14:46 56 18 136/64 (88) 95 Nasal Cannula 2.00 12/13/17 13:01 58 18 145/63 (90) 95 Nasal Cannula 2.00 12/13/17 12:39 94 Nasal Cannula 2.00 12/13/17 12:37 57 18 196/77 (116) 94 Nasal Cannula 2.00 12/13/17 12:30 94 Nasal Cannula 2.00 12/13/17 12:30 94 2.00 12/13/17 12:15 56 18 94 12/13/17 12:12 97.9 56 18 194/86 (122) 94 I/O 12/13/17 12/13/17 12/13/17 12/14/17 12/14/17 12/14/17 06:59 14:59 22:59 06:59 14:59 22:59 Intake Total 1400 ml 500 ml Output Total 350 ml Balance 1050 ml 500 ml Intake Oral 400 ml 500 ml IV Total 1000 ml Output Urine Total 350 ml # Voids 3 5 # Bowel Movements 0 0 (Bennie Fitch MD R1) Result Diagram: 12/14/17 0601 12/14/17 0601 Imaging Last 48 hours Impressions Neck CTA 12/13/17 1237 Signed Impressions: Service Date/Time: Wednesday, December 13, 2017 13:04 - CONCLUSION: 1. Atherosclerotic calcification in the arch, proximal arch vessels and both carotid bifurcations. 2. However, arch and cervical vessels are patent throughout with no significant stenosis. Jenaro Kumar MD Head CTA 12/13/17 1237 Signed Impressions: Service Date/Time: Wednesday, December 13, 2017 13:04 - CONCLUSION: Intracranial vessels are all patent without embolus. Anatomic variant of the [place] as detailed above Jenaro Kumar MD Head CT 12/13/17 0000 Signed Impressions: Service Date/Time: Wednesday, December 13, 2017 12:10 - CONCLUSION: No acute intracranial findings Candido Jeronimo MD Brain MRI 12/13/17 0000 Signed Impressions: Service Date/Time: Wednesday, December 13, 2017 16:11 - CONCLUSION: No evidence of acute stroke. Chronic appearing white matter signal changes and a couple of areas of old microhemorrhage. Candido Jeronimo MD Objective Remarks GENERAL: This is a well-nourished, well-developed patient, in no apparent distress. SKIN: No rashes, ecchymoses or lesions. Cool and dry. HEAD: Atraumatic. Normocephalic. ENT: Otoscope used to examine ears. Right TM with tympanostomy tube in place with no draining or bleeding. No tympanostomy tube in place on the left TM. No fluid, purulence or bleeding appreciated. CARDIOVASCULAR: Regular rate and rhythm without murmurs, gallops, or rubs. RESPIRATORY: Clear to auscultation. Breath sounds equal bilaterally. No wheezes , rales, or rhonchi. GASTROINTESTINAL: Abdomen soft, non-tender, nondistended. No hepato-splenomegaly , or palpable masses. No guarding. MUSCULOSKELETAL: Extremities without clubbing, cyanosis, or edema. No joint tenderness, effusion, or edema noted. No calf tenderness. Negative Homans sign bilaterally. NEUROLOGICAL: Awake and alert. Cranial nerves II through XII. No notable facial droop or asymmetric smile appreciated today. EOMI. Motor and sensory grossly within normal limits. Five out of 5 muscle strength in all muscle groups. Speech is also improved from prior exam (Bennie Fitch MD R1) A/P Assessment and Plan 72 yo F with PMH of alcoholic cirrhosis, HTN, thrombocytopenia presenting to the ED as a stroke alert. At 11:00 AM on morning of admission she suddenly became dizzy, vomited, and had reported L sided weakness. Has possible mild left sided facial droop, slurred speech. CT Head on admission negative for acute bleed. Neurology consulted on admission and patient will not undergo TPA at this time. Admitting for further workup. Discharge Planning Likely discharge tomorrow. (Bennie Fitch MD R1) Problem List: (1) Dizziness ICD Codes: R42 - Dizziness and giddiness Plan: Patient with acute onset of dizziness, nausea, blurry vision and reported left-sided weakness. Mild facial droop, possible slurred speech on admission Neurology consulted. Elected against TPA as patient has a history of thrombocytopenia and symptoms were improving on admission Workup for stroke is been negative at this point Lipid profile, hemoglobin A1c normal Patient does have over 30 point drop in systolic blood pressure from sitting to standing on orthostatic vital signs Will order PT to eval for BPV We will also start meclizine 25 mg every 8 hours for symptomatic improvement 2D echo pending PT, OT, speech therapy Aspirin 81 mg daily - holding today as platelets decreased at 41 (lowest recorded platelet count in our records) Currently on Lipitor 10 mg daily, will continue Normal saline at 110 mm/h Imaging: CT head negative for acute bleed on admission Neck CTA on admission showed atherosclerotic Calcification in the arch, proximal arch vessels in both carotid bifurcations but no significant stenosis in the cervical vessels Head CTA showed all intracranial vessels patent without embolus MRI brain without evidence of acute stroke (2) Cirrhosis ICD Codes: K74.60 - Unspecified cirrhosis of liver Plan: Known history of cirrhosis On rifaximin, lactulose daily Ammonia level within normal limits on admission No further workup at this time (3) Thrombocytopenia ICD Codes: D69.6 - Thrombocytopenia, unspecified Plan: Patient with a known history of thrombocytopenia Platelet count of 55 on admission, 41 on 12/14 No signs of acute bleeding. We will transfuse platelets if if her platelet count drops below 20,000 We will continue to monitor. (4) GERD (gastroesophageal reflux disease) ICD Codes: K21.9 - Gastro-esophageal reflux disease without esophagitis Plan: On history of GERD Continue home Pepcid (5) FEN Plan: Normal saline at 110 mL/h Will replete electrolytes as needed Regular diet Holding DVT prophylaxis as patient has history of thrombocytopenia and is at risk for bleeding. SCDs (Bennie Fitch MD R1) Problem List: (1) Dizziness ICD Codes: R42 - Dizziness and giddiness Plan: Patient with acute onset of dizziness, nausea, blurry vision and reported left-sided weakness. Mild facial droop, possible slurred speech on admission Neurology consulted. Elected against TPA as patient has a history of thrombocytopenia and symptoms were improving on admission Workup for stroke is been negative at this point Lipid profile, hemoglobin A1c normal Patient does have over 30 point drop in systolic blood pressure from sitting to standing on orthostatic vital signs Will order PT to eval for BPV We will also start meclizine 25 mg every 8 hours for symptomatic improvement 2D echo pending PT, OT, speech therapy Aspirin 81 mg daily - holding today as platelets decreased at 41 (lowest recorded platelet count in our records) Currently on Lipitor 10 mg daily, will continue Normal saline at 110 mm/h Imaging: CT head negative for acute bleed on admission Neck CTA on admission showed atherosclerotic Calcification in the arch, proximal arch vessels in both carotid bifurcations but no significant stenosis in the cervical vessels Head CTA showed all intracranial vessels patent without embolus MRI brain without evidence of acute stroke (2) Cirrhosis ICD Codes: K74.60 - Unspecified cirrhosis of liver Plan: Known history of cirrhosis On rifaximin, lactulose daily Ammonia level within normal limits on admission No further workup at this time (3) Thrombocytopenia ICD Codes: D69.6 - Thrombocytopenia, unspecified Plan: Patient with a known history of thrombocytopenia Platelet count of 55 on admission, 41 on 12/14 No signs of acute bleeding. We will transfuse platelets if if her platelet count drops below 20,000 We will continue to monitor. (4) GERD (gastroesophageal reflux disease) ICD Codes: K21.9 - Gastro-esophageal reflux disease without esophagitis Plan: On history of GERD Continue home Pepcid (5) FEN Plan: Normal saline at 110 mL/h Will replete electrolytes as needed Regular diet Holding DVT prophylaxis as patient has history of thrombocytopenia and is at risk for bleeding. SCDs See the residents documentation for details. I saw and evaluated the patient regarding the jefferson portions of this evaluation and agree with the residents findings and plans as written. Parts of this note were created using [employer] voice recognition software program. While efforts were made to correct any mistakes made by this software, some mistakes, errors, and omissions may remain in the final note that were not caught when the note was originally created. Plan of care was discussed and agreed upon with the patient as specifically documented in the above note. An opportunity to ask questions with explanation was provided. Patient voiced understanding on all information reviewed and discussed. (Norberto Wallace MD) Bennie Fitch MD R1 December 14, 2017 11:20 Norberto Wallace MD December 16, 2017 11:35
[2017-12-14] MEDS: REMOVE OLD PATCH T-DERMAL SCH (18:00)
[2017-12-14] MEDS ORDERED: IBUPROFEN 400 MG TAB PO PRN (18:00)
[2017-12-14] MEDS: NICOTINE 14 MG/24 HR PATCH T-DERMAL SCH (18:24)
[2017-12-14] MEDS: ATORVASTATIN 10 MG TAB PO SCH (21:05)
[2017-12-14] MEDS: TEMAZEPAM 15 MG CAP PO PRN (21:05)
[2017-12-15] VITALS (11 sets, daily range): BP systolic 135–201; BP diastolic 62–103; PULSE 66–106; RESP 18–20; TEMP 97.1–98.9; O2SAT 94–96
[2017-12-15] MEDS: MECLIZINE HCL 25 MG TAB PO SCH ×3 (01:55→17:18)
[2017-12-15] MEDS: SODIUM CHLOR 0.9% 1000 ML INJ 1,000 ML IV SCH (02:36)
--- NOTE | 2017-12-15 03:09 | HHI.FPPN ---
Addendum to progress note ADDENDUM Reason for addendum: Additonal documentation Additional information This is a 72-year-old female with a past medical history of alcoholic cirrhosis , hypertension, and thrombocytopenia admitted on 12/13/17 as a stroke alert for reported left-sided weakness,mild left-sided facial droop, and slurred speech. Neurology was consulted, patient did not receive TPA. CT imaging of the head at the time showed no acute bleed. Stroke workup has been negative so far. S: Paged at [phone] for patient regarding fall. Per nurse report, patient was found on the ground by her bed sitting on her backside. No bleeding or acute injuries were noted other than a small 1.5 cm superficial abrasion on the extensor surface of the forearm (right). Patient has been and noted to have been appearing confused since admission, seems to have worsened in the evening. She has tried to remove her telemetry, remove her IVs, and keeps trying to get out of bed. Does not seem to understand where she is, keeps stating that she needs to go to her room. Patient is not able to elaborate on any new symptoms. States that she has a headache on the upper lateral portion of her scalp. Does not endorse any pain in her body. Cannot explain why she was found on the ground. O: Blood pressure 186/89. Pulse 81. Afebrile, temperature 97.6. Pulse ox 95% on room air. GENERAL: This is an elderly, confused woman clutching at the telemetry box tucked in her right pocket, is grunting and appears uncomfortable. NEUROLOGICAL: Oriented 3. However, during exam, tries to get out of bed and states that she needs to go back to her room according to doctor's orders. Seems confused. Is able to be reoriented verbally. Cranial nerves II through XII intact. A mild, left-sided facial droop is noted with an asymmetric smile. EOMI. Motor and sensory grossly within normal limits. Five out of 5 muscle strength in all muscle groups. Some mild slurring of speech noted. No pronator drift. Slight intention tremor noted on finger to nose testing. Reflexes intact at the patella bilaterally. MUSCULOSKELETAL: Extremities without clubbing, cyanosis, or edema. No joint stiffness or pain, normal range of motion of the neck. No step-offs noted at the vertebral column. SKIN: A small superficial skin abrasion with slight bleeding noted on the extensor surface. A bandage has been applied to the site. HEAD: Atraumatic. Normocephalic. No tenderness. CARDIOVASCULAR: Regular rate and rhythm without murmurs, gallops, or rubs. RESPIRATORY: Clear to auscultation. Breath sounds equal bilaterally. No wheezes , rales, or rhonchi. GASTROINTESTINAL: Abdomen soft, non-tender, nondistended. No hepato-splenomegaly , or palpable masses. No guarding. A/P: 72-year-old female with history of alcoholic cirrhosis and thrombocytopenia admitted for stroke alert presenting with confusion after a recent fall. There does not appear to be any new focal deficits, major active bleeding, or acute signs of injury. The patient's confusion does not appear to be new. It appears that patient is being assessed for possible dizziness after being found to have orthostatic hypotension. 1. Confusion: may be secondary to sundowning -Medications were reviewed, no medications currently seem to be contributing to symptoms -Instructions to reorient patient as needed and avoid bright lights and loud noises to prevent worsening of symptoms/sundowning -We will avoid Haldol/restraints/sedatives unless patient continues to be noncooperative or shows agitation (i.e. pulling out IVs, becoming combative) -If patient shows signs of active bleeding or focal deficits, will consider rechecking platelet levels or ordering head imaging -Continue bed rest, fall precautions, and neuro checks every 4 hours -We will DC cardiac telemetry for now since patient has not had any concerning events and has showed discomfort with it. There is currently a lack of concern for arrhythmia at this time 2. Hypertensive Urgency - may be related to headache - permissive HTN was allowed on admission as part of stroke work-up - will adjust PRN for SBP >180 and DBP >100 Seen w/Virginia Blackwell MD R1 December 15, 2017 03:09
[2017-12-15 07:19] LABS: AUTOMATED NEUTROPHIL # 4.7 TH/MM3 (1.8-7.7); BASOPHIL % 0.3 % (0.0-2.0); EOSINOPHIL % 0.1 % (0.0-4.0); HEMATOCRIT 39.3 % (35.0-46.0); HEMOGLOBIN 13.5 GM/DL (11.6-15.3); LYMPH % 13.9 % (9.0-44.0); LYMPHOCYTE # 0.8 TH/MM3 (1.0-4.8); MEAN CORPUSCULAR HGB CONC 34.4 % (32.0-36.0); MONO % 6.1 % (0.0-8.0); MONOCYTE # 0.4 TH/MM3 (0-0.9); NEUT % 79.6 % (16.0-70.0); PLATELET COUNT 45 TH/MM3 (150-450); RED BLOOD COUNT 3.97 MIL/MM3 (4.00-5.30); RED CELL DISTRIBUTION WIDTH 14.5 % (11.6-17.2); WHITE BLOOD COUNT 5.9 TH/MM3 (4.0-11.0)
[2017-12-15 07:38] LABS: BICARBONATE 24.1 MEQ/L (21.0-32.0); CALCIUM 7.8 MG/DL (8.5-10.1); CREATININE 0.48 MG/DL (0.50-1.00)
[2017-12-15] MEDS: INSULIN ASPART SUPPLEMENTAL SCALE SQ SCH ×4 (08:00→21:00)
[2017-12-15] MEDS: SODIUM CHLORIDE 0.9% FLUSH 10 ML FLUSH IV FLUSH SCH ×2 (08:15→19:57)
[2017-12-15] MEDS: NICOTINE 14 MG/24 HR PATCH T-DERMAL SCH (08:20)
[2017-12-15] MEDS: RIFAXIMIN 200 MG TAB PO SCH ×3 (08:23→17:18)
[2017-12-15] MEDS: PARoxetine HCL 20 MG TAB PO SCH (08:24)
[2017-12-15] MEDS: DOCUSATE SODIUM 50 MG/SENNA 8.6 MG TAB PO SCH ×2 (08:25→19:57)
[2017-12-15] MEDS: NADOLOL 20 MG TAB PO SCH (08:25)
[2017-12-15] MEDS: ASPIRIN 81 MG CHEW TAB PO SCH (08:29)
[2017-12-15] MEDS: FAMOTIDINE 20 MG TAB PO SCH ×2 (08:31→19:57)
[2017-12-15] MEDS: POTASSIUM CHLORIDE 20 MEQ CONTROLLED RELEASE TAB PO SCH (08:32)
[2017-12-15] MEDS: LACTULOSE SYRUP 20 GM/30 ML CUP PO SCH ×2 (08:45→19:56)
[2017-12-15] MEDS: REMOVE OLD PATCH T-DERMAL SCH (08:46)
--- NOTE | 2017-12-15 09:35 | HHI.FPPN ---
Subjective Remarks Resident team paged overnight for a fall. At that time there were no apparent injuries other than a small superficial abrasion on her R forearm. She did seem confused as she had taken out her IV's, telemetry and spoke about "needing to go to her room". This morning when interviewed she states that she is not sure why she slipped out of her bed last night. Denies any current pain. She does continue to have some dizziness when standing that is unchanged from yesterday. She does seem to be a little more confused or drowsy/tired today. I spoke with 1 of her nurses from [facility] [place] [facility] and they state that she normally is alert and oriented with no dementia or sundowners. She does occasionally have nightmares and positive sleep but otherwise has no complications at night. (Bennie Fitch MD R1) Objective Vitals Vital Signs Date Time Temp Pulse Resp B/P (MAP) Pulse Ox O2 Delivery O2 Flow Rate FiO2 12/15/17 08:00 98.3 91 19 191/81 (117) 94 187/85 (119) 173/103 (126) 12/15/17 04:00 98.0 77 18 181/88 (119) 94 12/15/17 00:12 182/88 (119) 12/15/17 00:09 81 19 201/98 (132) 12/15/17 00:08 81 186/89 (121) 12/15/17 00:00 97.6 73 18 135/63 (87) 95 12/14/17 23:37 75 12/14/17 20:07 98 Nasal Cannula 2.00 12/14/17 20:00 150/69 (96) 12/14/17 20:00 99.0 66 18 170/79 (109) 97 12/14/17 20:00 150/72 (98) 12/14/17 16:57 63 12/14/17 16:43 98.2 63 18 137/65 (89) 98 12/14/17 12:36 62 12/14/17 12:25 98.1 63 18 144/64 (90) 97 136/65 (88) 127/62 (83) 12/14/17 12:14 Nasal Cannula 2.00 12/14/17 09:56 69 I/O 12/14/17 12/14/17 12/14/17 12/15/1718 5/13/18 07:00 15:00 23:00 07:00 15:00 23:00 Intake Total 500 ml Balance 500 ml Intake Oral 500 ml # Voids 5 9 6 # Bowel Movements 0 1 (Bennie Fitch MD R1) Result Diagram: 12/15/1761912/15/17619 Objective Remarks GENERAL: This is a well-nourished, well-developed patient, in no apparent distress. SKIN: No rashes, ecchymoses or lesions. Cool and dry. HEAD: Atraumatic. Normocephalic. ENT: Otoscope used to examine ears on 12/14. Right TM with tympanostomy tube in place with no draining or bleeding. No tympanostomy tube in place on the left TM. No fluid, purulence or bleeding appreciated. CARDIOVASCULAR: Regular rate and rhythm without murmurs, gallops, or rubs. RESPIRATORY: Clear to auscultation. Breath sounds equal bilaterally. No wheezes , rales, or rhonchi. GASTROINTESTINAL: Abdomen soft, non-tender, nondistended. No hepato-splenomegaly , or palpable masses. No guarding. MUSCULOSKELETAL: Extremities without clubbing, cyanosis, or edema. No joint tenderness, effusion, or edema noted. NEUROLOGICAL: Awake and alert. Patient is more drowsy/tired during the interview today. Speech is a little more slurred today. EOMI. (Bennie Fitch MD R1) A/P Assessment and Plan 72 yo F with PMH of alcoholic cirrhosis, HTN, thrombocytopenia presenting to the ED as a stroke alert. At 11:00 AM on morning of admission she suddenly became dizzy, vomited, and had reported L sided weakness. Has possible mild left sided facial droop, slurred speech. CT Head on admission negative for acute bleed. Neurology consulted on admission and patient will not undergo TPA at this time. Admitting for further workup. Discharge Planning Likely discharge tomorrow. Will need physical therapy on discharge (Bennie Fitch MD R1) Problem List: (1) Dizziness ICD Codes: R42 - Dizziness and giddiness Plan: Patient with acute onset of dizziness, nausea, blurry vision and reported left-sided weakness. Mild facial droop, possible slurred speech on admission Neurology consulted. Elected against TPA as patient has a history of thrombocytopenia and symptoms were improving on admission Workup for stroke is been negative at this point Lipid profile, hemoglobin A1c normal Patient does have over 30 point drop in systolic blood pressure from sitting to standing on orthostatic vital signs Will order PT to eval for BPV Patient was more drowsy on meclizine 3 times a day, will decrease to once daily on 12/15 2D echo pending PT, OT, speech therapy Aspirin 81 mg daily - holding as platelets decreased at 45 Currently on Lipitor 10 mg daily, will continue Normal saline at 110 mm/h Imaging: CT head negative for acute bleed on admission Neck CTA on admission showed atherosclerotic Calcification in the arch, proximal arch vessels in both carotid bifurcations but no significant stenosis in the cervical vessels Head CTA showed all intracranial vessels patent without embolus MRI brain without evidence of acute stroke (2) Cirrhosis ICD Codes: K74.60 - Unspecified cirrhosis of liver Plan: Known history of cirrhosis On rifaximin, lactulose daily Ammonia level within normal limits on admission No further workup at this time (3) Thrombocytopenia ICD Codes: D69.6 - Thrombocytopenia, unspecified Plan: Patient with a known history of thrombocytopenia Platelet count of 55 on admission, 45 on 12/15 No signs of acute bleeding. We will transfuse platelets if if her platelet count drops below 20,000 We will continue to monitor. (4) GERD (gastroesophageal reflux disease) ICD Codes: K21.9 - Gastro-esophageal reflux disease without esophagitis Plan: On history of GERD Continue home Pepcid (5) FEN Plan: No IV fluids at this time as patient is tolerating p.o. Will replete electrolytes as needed Regular diet Holding DVT prophylaxis as patient has history of thrombocytopenia and is at risk for bleeding. SCDs (Bennie Fitch MD R1) Problem List: (1) Dizziness ICD Codes: R42 - Dizziness and giddiness Plan: Patient with acute onset of dizziness, nausea, blurry vision and reported left-sided weakness. Mild facial droop, possible slurred speech on admission Neurology consulted. Elected against TPA as patient has a history of thrombocytopenia and symptoms were improving on admission Workup for stroke is been negative at this point Lipid profile, hemoglobin A1c normal Patient does have over 30 point drop in systolic blood pressure from sitting to standing on orthostatic vital signs Will order PT to eval for BPV Patient was more drowsy on meclizine 3 times a day, will decrease to once daily on 12/15 2D echo pending PT, OT, speech therapy Aspirin 81 mg daily - holding as platelets decreased at 45 Currently on Lipitor 10 mg daily, will continue Normal saline at 110 mm/h Imaging: CT head negative for acute bleed on admission Neck CTA on admission showed atherosclerotic Calcification in the arch, proximal arch vessels in both carotid bifurcations but no significant stenosis in the cervical vessels Head CTA showed all intracranial vessels patent without embolus MRI brain without evidence of acute stroke (2) Cirrhosis ICD Codes: K74.60 - Unspecified cirrhosis of liver Plan: Known history of cirrhosis On rifaximin, lactulose daily Ammonia level within normal limits on admission No further workup at this time (3) Thrombocytopenia ICD Codes: D69.6 - Thrombocytopenia, unspecified Plan: Patient with a known history of thrombocytopenia Platelet count of 55 on admission, 45 on 12/15 No signs of acute bleeding. We will transfuse platelets if if her platelet count drops below 20,000 We will continue to monitor. (4) GERD (gastroesophageal reflux disease) ICD Codes: K21.9 - Gastro-esophageal reflux disease without esophagitis Plan: On history of GERD Continue home Pepcid (5) FEN Plan: No IV fluids at this time as patient is tolerating p.o. Will replete electrolytes as needed Regular diet Holding DVT prophylaxis as patient has history of thrombocytopenia and is at risk for bleeding. SCDs I have reviewed the patients past medical/surgical and social histories and updated as appropriate. Parts of this note were created using [employer] voice recognition software program. While efforts were made to correct any mistakes made by this software, some mistakes, errors, and omissions may remain in the final note that were not caught when the note was originally created. Plan of care was discussed and agreed upon with the patient as specifically documented in the above note. An opportunity to ask questions with explanation was provided. Medications were reviewed and discussed as appropriate including side effects and risks vs. benefit. Pt. was instructed should any symptoms worsen he should call for an HUONG appointment or report to the emergency department for further evaluation. Patient voiced understanding on all information reviewed and discussed. (Norberto Wallace MD) Bennie Fitch MD R1 December 15, 2017 09:35 Norberto Wallace MD December 16, 2017 11:55
[2017-12-15] MEDS: ENALAPRILAT 1.25 MG/ML VIAL IV PUSH PRN (13:14)
[2017-12-15] MEDS ORDERED: HALOPERIDOL LACTATE 5 MG/ML AMP IM ONE (19:30)
[2017-12-15] MEDS: ATORVASTATIN 10 MG TAB PO SCH (19:57)
[2017-12-15] MEDS ORDERED: HALOPERIDOL LACTATE 5 MG/ML AMP IV PRN (21:15)
[2017-12-16] VITALS (8 sets, daily range): BP systolic 163–204; BP diastolic 82–148; PULSE 62–79; RESP 20; TEMP 98.5–99.3; O2SAT 93–96
[2017-12-16] MEDS: MECLIZINE HCL 25 MG TAB PO SCH (02:27)
[2017-12-16] MEDS: ENALAPRILAT 1.25 MG/ML VIAL IV PUSH PRN (05:51)
[2017-12-16 07:53] LABS: AUTOMATED NEUTROPHIL # 5.1 TH/MM3 (1.8-7.7); BASOPHIL # 0.1 TH/MM3 (0-0.2); BASOPHIL % 0.9 % (0.0-2.0); EOSINOPHIL % 0.1 % (0.0-4.0); HEMATOCRIT 41.3 % (35.0-46.0); HEMOGLOBIN 14.3 GM/DL (11.6-15.3); LYMPH % 11.6 % (9.0-44.0); LYMPHOCYTE # 0.7 TH/MM3 (1.0-4.8); MEAN CELL VOLUME 97.1 FL (80.0-100.0); MEAN CORPUSCULAR HEMOGLOBIN 33.6 PG (27.0-34.0); MEAN CORPUSCULAR HGB CONC 34.6 % (32.0-36.0); MONO % 5.7 % (0.0-8.0); MONOCYTE # 0.4 TH/MM3 (0-0.9); NEUT % 81.7 % (16.0-70.0); PLATELET COUNT 56 TH/MM3 (150-450); RED BLOOD COUNT 4.25 MIL/MM3 (4.00-5.30); RED CELL DISTRIBUTION WIDTH 14.5 % (11.6-17.2); WHITE BLOOD COUNT 6.2 TH/MM3 (4.0-11.0)
[2017-12-16] MEDS: INSULIN ASPART SUPPLEMENTAL SCALE SQ SCH ×3 (08:00→21:00)
[2017-12-16 08:18] LABS: ALBUMIN 2.8 GM/DL (3.4-5.0); ALT (GPT) 28 U/L (10-53); AST (GOT) 54 U/L (15-37); BICARBONATE 26.4 MEQ/L (21.0-32.0); BLOOD UREA NITROGEN 6 MG/DL (7-18); CALCIUM 8.1 MG/DL (8.5-10.1); CHLORIDE 105 MEQ/L (98-107); CREATININE 0.39 MG/DL (0.50-1.00); GLOMERULAR FILTRATION RATE 162 ML/MIN (>89); GLUCOSE,RANDOM 99 MG/DL (74-106); SODIUM (NA) 139 MEQ/L (136-145)
[2017-12-16 08:30] LABS: ALKALINE PHOSPHATASE 113 U/L (45-117); TOTAL BILIRUBIN ADULT 5.7 MG/DL (0.2-1.0); TOTAL PROTEIN 5.9 GM/DL (6.4-8.2)
[2017-12-16] MEDS: SODIUM CHLORIDE 0.9% FLUSH 10 ML FLUSH IV FLUSH SCH ×2 (09:00→21:42)
[2017-12-16] MEDS ORDERED: MECLIZINE HCL 25 MG TAB PO SCH (09:00)
[2017-12-16] MEDS: REMOVE OLD PATCH T-DERMAL SCH (09:00)
[2017-12-16] MEDS ORDERED: HALOPERIDOL LACTATE 5 MG/ML AMP IV PUSH PRN (09:15)
[2017-12-16] MEDS: POTASSIUM CHLORIDE 20 MEQ CONTROLLED RELEASE TAB PO SCH (09:33)
[2017-12-16] MEDS: DOCUSATE SODIUM 50 MG/SENNA 8.6 MG TAB PO SCH ×2 (09:34→21:42)
[2017-12-16] MEDS: RIFAXIMIN 200 MG TAB PO SCH ×3 (09:34→17:03)
[2017-12-16] MEDS: PARoxetine HCL 20 MG TAB PO SCH (09:34)
[2017-12-16] MEDS: LACTULOSE SYRUP 20 GM/30 ML CUP PO SCH ×2 (09:34→21:42)
[2017-12-16] MEDS: NICOTINE 14 MG/24 HR PATCH T-DERMAL SCH (09:35)
[2017-12-16] MEDS: ASPIRIN 81 MG CHEW TAB PO SCH (09:35)
[2017-12-16] MEDS: FAMOTIDINE 20 MG TAB PO SCH ×2 (09:35→21:42)
[2017-12-16] MEDS: NADOLOL 20 MG TAB PO SCH (09:35)
--- NOTE | 2017-12-16 10:57 | HHI.FPPN ---
Subjective Remarks Patient was agitated and confused overnight. Patient was trying to get out of bed. Patient received 1 dose of Haldol and was put in nonviolent restraints. Patient lying in bed this morning in restraints. She seems somewhat confused and disoriented. Blood pressure is elevated at 204/102. Blood pressures improved after several adjustments on hypertension medications and IV dose of Vasotec. No complaints this a.m. (Tiffanie Diallo MD R1) Objective Vitals Vital Signs Date Time Temp Pulse Resp B/P (MAP) Pulse Ox O2 Delivery O2 Flow Rate FiO2 12/16/17 10:19 93 Nasal Cannula 2.00 12/16/17 07:47 99.2 77 20 191/85 (120) 93 12/16/17 06:50 188/148 (161) 12/16/17 05:52 204/102 (136) 12/16/17 03:37 98.7 79 20 182/85 (117) 94 12/15/17 23:34 98.6 73 19 161/67 (98) 12/15/17 21:30 95 Nasal Cannula 2.00 12/15/17 20:00 98.9 69 18 178/79 (112) 94 12/15/17 16:00 97.1 66 20 150/62 (91) 95 151/76 (101) 12/15/17 13:44 12/15/17 12:00 98.5 106 19 199/100 (133) 96 201/94 (129) 189/98 (128) I/O 12/15/17 12/15/17 12/15/17 12/16/17 12/16/17 12/16/17 07:00 15:00 23:00 07:00 15:00 23:00 # Voids 6 4 1 2 # Bowel Movements 1 1 (Tiffanie Diallo MD R1) Result Diagram: 12/16/17 0735 12/16/17 0735 Objective Remarks GENERAL: This is a well-nourished, well-developed patient, in no apparent distress. SKIN: No rashes, ecchymoses or lesions. Cool and dry. HEAD: Atraumatic. Normocephalic. ENT: Otoscope used to examine ears on 12/14. Right TM with tympanostomy tube in place with no draining or bleeding. No tympanostomy tube in place on the left TM. No fluid, purulence or bleeding appreciated. CARDIOVASCULAR: Regular rate and rhythm without murmurs, gallops, or rubs. RESPIRATORY: Clear to auscultation. Breath sounds equal bilaterally. No wheezes , rales, or rhonchi. GASTROINTESTINAL: Abdomen soft, non-tender, nondistended. No hepato-splenomegaly , or palpable masses. No guarding. MUSCULOSKELETAL: Extremities without clubbing, cyanosis, or edema. No joint tenderness, effusion, or edema noted. NEUROLOGICAL: Alert. Somewhat confused and disoriented. EOMI. (Tiffanie Diallo MD R1) A/P Assessment and Plan 72 yo F with PMH of alcoholic cirrhosis, HTN, thrombocytopenia presenting to the ED as a stroke alert. At 11:00 AM on morning of admission she suddenly became dizzy, vomited, and had reported L sided weakness. Has possible mild left sided facial droop, slurred speech. CT Head on admission negative for acute bleed. Neurology consulted on admission and patient will not undergo TPA at this time. Admitting for further workup. Discharge Planning Patient will need to be 24hr free of Haldol and non-violent restraints Anticipate discharge to [facility] (Tiffanie Diallo MD R1) Problem List: (1) Dizziness ICD Codes: R42 - Dizziness and giddiness Plan: Patient with acute onset of dizziness, nausea, blurry vision and reported left-sided weakness. Mild facial droop, possible slurred speech on admission Neurology consulted. Elected against TPA as patient has a history of thrombocytopenia and symptoms were improving on admission Workup for stroke is been negative at this point Lipid profile, hemoglobin A1c normal Discharge Meclizine due to dizziness and elevated blood pressures 2D echo pending PT, OT, speech therapy Aspirin 81 mg daily, Platelets improving, 56 today Currently on Lipitor 10 mg daily, will continue Imaging: CT head negative for acute bleed on admission Neck CTA on admission showed atherosclerotic Calcification in the arch, proximal arch vessels in both carotid bifurcations but no significant stenosis in the cervical vessels Head CTA showed all intracranial vessels patent without embolus MRI brain without evidence of acute stroke (2) HTN (hypertension) ICD Codes: I10 - Essential (primary) hypertension Plan: Blood pressures elevated at 204/102 this AM Start on 20mg PO daily Lisinopril Continue Nadolol 20mg PO daily Vasotec 1.25 mg IV push q4h for BP> 180/100 (3) Cirrhosis ICD Codes: K74.60 - Unspecified cirrhosis of liver Plan: Known history of cirrhosis On rifaximin, lactulose daily Ammonia level slightly elevated at 36 today (4) Thrombocytopenia ICD Codes: D69.6 - Thrombocytopenia, unspecified Plan: Patient with a known history of thrombocytopenia Platelet count improving, 56 today No signs of acute bleeding. We will transfuse platelets if if her platelet count drops below 20,000 We will continue to monitor. (5) GERD (gastroesophageal reflux disease) ICD Codes: K21.9 - Gastro-esophageal reflux disease without esophagitis Plan: On history of GERD Continue home Pepcid (6) Depressive Disorder Nec Plan: Continue Paroxetine 30mg PO daily (7) FEN Plan: No IV fluids at this time as patient is tolerating p.o. Will replete electrolytes as needed Regular diet Holding DVT prophylaxis as patient has history of thrombocytopenia and is at risk for bleeding. SCDs (Tiffanie Diallo MD R1) Problem List: (1) Dizziness ICD Codes: R42 - Dizziness and giddiness Plan: Patient with acute onset of dizziness, nausea, blurry vision and reported left-sided weakness. Mild facial droop, possible slurred speech on admission Neurology consulted. Elected against TPA as patient has a history of thrombocytopenia and symptoms were improving on admission Workup for stroke is been negative at this point Lipid profile, hemoglobin A1c normal Discharge Meclizine due to dizziness and elevated blood pressures 2D echo pending PT, OT, speech therapy Aspirin 81 mg daily, Platelets improving, 56 today Currently on Lipitor 10 mg daily, will continue Imaging: CT head negative for acute bleed on admission Neck CTA on admission showed atherosclerotic Calcification in the arch, proximal arch vessels in both carotid bifurcations but no significant stenosis in the cervical vessels Head CTA showed all intracranial vessels patent without embolus MRI brain without evidence of acute stroke (2) HTN (hypertension) ICD Codes: I10 - Essential (primary) hypertension Plan: Blood pressures elevated at 204/102 this AM Start on 20mg PO daily Lisinopril Continue Nadolol 20mg PO daily Vasotec 1.25 mg IV push q4h for BP> 180/100 (3) Cirrhosis ICD Codes: K74.60 - Unspecified cirrhosis of liver Plan: Known history of cirrhosis On rifaximin, lactulose daily Ammonia level slightly elevated at 36 today (4) Thrombocytopenia ICD Codes: D69.6 - Thrombocytopenia, unspecified Plan: Patient with a known history of thrombocytopenia Platelet count improving, 56 today No signs of acute bleeding. We will transfuse platelets if if her platelet count drops below 20,000 We will continue to monitor. (5) GERD (gastroesophageal reflux disease) ICD Codes: K21.9 - Gastro-esophageal reflux disease without esophagitis Plan: On history of GERD Continue home Pepcid (6) Depressive Disorder Nec Plan: Continue Paroxetine 30mg PO daily (7) FEN Plan: No IV fluids at this time as patient is tolerating p.o. Will replete electrolytes as needed Regular diet Holding DVT prophylaxis as patient has history of thrombocytopenia and is at risk for bleeding. SCDs The patient did have a fall several days ago. It does not seem like she has any trauma to the head. Also does not seem that she hit her head during the fall. She also does not have any trauma over either hip ribs or elbow. I have reviewed the patients past medical/surgical and social histories and updated as appropriate. Parts of this note were created using [employer] voice recognition software program. While efforts were made to correct any mistakes made by this software, some mistakes, errors, and omissions may remain in the final note that were not caught when the note was originally created. Plan of care was discussed and agreed upon with the patient as specifically documented in the above note. An opportunity to ask questions with explanation was provided. Medications were reviewed and discussed as appropriate including side effects and risks vs. benefit. Pt. was instructed should any symptoms worsen he should call for an HUONG appointment or report to the emergency department for further evaluation. Patient voiced understanding on all information reviewed and discussed. (Norberto Wallace MD) Tiffanie Diallo MD R1 December 16, 2017 10:57 Norberto Wallace MD December 16, 2017 14:26
[2017-12-16] MEDS: LISINOPRIL 20 MG TAB PO SCH (11:32)
[2017-12-16] MEDS ORDERED: LACTULOSE LIQ 300 ML in WATER STERILE FOR IRR BTL 700 ML RECTAL ONE (14:45)
[2017-12-16] MEDS: ATORVASTATIN 10 MG TAB PO SCH (21:42)
[2017-12-17 00:02] VITALS: BP 155/76; PULSE 78; RESP 20; TEMP 99.4; O2SAT 97
[2017-12-17 04:54] VITALS: BP 171/74; PULSE 86; RESP 18; TEMP 98.2; O2SAT 98
[2017-12-17 05:38] LABS: HEMATOCRIT 40.2 % (35.0-46.0); MEAN CELL VOLUME 96.9 FL (80.0-100.0); MEAN CORPUSCULAR HEMOGLOBIN 33.8 PG (27.0-34.0); MEAN CORPUSCULAR HGB CONC 34.9 % (32.0-36.0); MEAN PLATELET VOLUME 9.3 FL (7.0-11.0); PLATELET COUNT 67 TH/MM3 (150-450); RED BLOOD COUNT 4.15 MIL/MM3 (4.00-5.30); RED CELL DISTRIBUTION WIDTH 14.4 % (11.6-17.2)
[2017-12-17 06:02] LABS: CALCIUM 7.8 MG/DL (8.5-10.1); CREATININE 0.45 MG/DL (0.50-1.00)
[2017-12-17] MEDS ORDERED: POTASSIUM CHLORIDE 10 MEQ CONTROLLED RELEASE TAB PO ONE (07:15)
[2017-12-17 08:00] VITALS: BP 167/77; PULSE 85; RESP 18; TEMP 98.7; O2SAT 94
[2017-12-17] MEDS: INSULIN ASPART SUPPLEMENTAL SCALE SQ SCH ×4 (08:00→21:00)
--- NOTE | 2017-12-17 08:59 | HHI.FPPN ---
Subjective Remarks No acute events overnight. Pt lying in bed, somewhat confused. Oriented to place and person. Nurse at bedside. Reports that patient is still in restraints. Patient still wanting to get out of bed. Blood pressure elevated at 171/74 prior to HTN meds. Patient is currently on 2L NC. No complaints. (Tiffanie Diallo MD R1) Objective Vitals Vital Signs Date Time Temp Pulse Resp B/P (MAP) Pulse Ox O2 Delivery O2 Flow Rate FiO2 12/17/17 04:54 98.2 86 18 171/74 (106) 98 12/17/17 00:02 99.4 78 20 155/76 (102) 97 12/16/17 21:39 98.5 67 20 174/84 (114) 96 12/16/17 15:49 99.3 62 20 176/82 (113) 95 12/16/17 11:04 99.0 77 20 163/84 (110) 95 12/16/17 10:19 93 Nasal Cannula 2.00 I/O 12/16/17 12/16/17 12/16/17 12/17/17 12/17/17 12/17/17 06:59 14:59 22:59 06:59 14:59 22:59 Intake Total 240 ml 360 ml Balance 240 ml 360 ml Intake Oral 240 ml 360 ml # Voids 2 4 4 1 # Bowel Movements 1 0 1 (Tiffanie Diallo MD R1) Result Diagram: 12/17/1751812/17/17518 Objective Remarks GENERAL: This is a well-nourished, well-developed patient, in no apparent distress. SKIN: No rashes, ecchymoses or lesions. Cool and dry. HEAD: Atraumatic. Normocephalic. CARDIOVASCULAR: Regular rate and rhythm without murmurs, gallops, or rubs. RESPIRATORY: Clear to auscultation. Breath sounds equal bilaterally. No wheezes , rales, or rhonchi. GASTROINTESTINAL: Abdomen soft, non-tender, nondistended. No hepato-splenomegaly , or palpable masses. No guarding. MUSCULOSKELETAL: Extremities without clubbing, cyanosis, or edema. No joint tenderness, effusion, or edema noted. NEUROLOGICAL: Alert. Somewhat confused and disoriented. EOMI. (Tiffanie Diallo MD R1) A/P Assessment and Plan 72 yo F with PMH of alcoholic cirrhosis, HTN, thrombocytopenia presenting to the ED as a stroke alert. At 11:00 AM on morning of admission she suddenly became dizzy, vomited, and had reported L sided weakness. Has possible mild left sided facial droop, slurred speech. CT Head on admission negative for acute bleed. Neurology consulted on admission and patient will not undergo TPA at this time. Admitted for further workup below. Discharge Planning Patient will need to be 24hr free of Haldol and non-violent restraints Anticipate discharge to [facility] (Tiffanie Diallo MD R1) Problem List: (1) Dizziness ICD Codes: R42 - Dizziness and giddiness Plan: Patient with acute onset of dizziness, nausea, blurry vision and reported left-sided weakness. Mild facial droop, possible slurred speech on admission Neurology consulted. Elected against TPA as patient has a history of thrombocytopenia and symptoms were improving on admission Workup for stroke is been negative at this point Lipid profile, hemoglobin A1c normal 2D echo pending PT, OT, speech therapy Aspirin 81 mg daily, Platelets improving Currently on Lipitor 10 mg daily, will continue Imaging: CT head negative for acute bleed on admission Neck CTA on admission showed atherosclerotic Calcification in the arch, proximal arch vessels in both carotid bifurcations but no significant stenosis in the cervical vessels Head CTA showed all intracranial vessels patent without embolus MRI brain without evidence of acute stroke (2) HTN (hypertension) ICD Codes: I10 - Essential (primary) hypertension Plan: Blood pressures elevated at 171/74 this AM Continue 20mg PO daily Lisinopril Continue Nadolol 20mg PO daily Vasotec 1.25 mg IV push q4h for BP> 180/100 (3) Cirrhosis ICD Codes: K74.60 - Unspecified cirrhosis of liver Plan: Known history of cirrhosis Ammonia elevated at 70 this AM On rifaximin, lactulose increased to 30ml TID (4) Thrombocytopenia ICD Codes: D69.6 - Thrombocytopenia, unspecified Plan: Patient with a known history of thrombocytopenia Platelet count improving No signs of acute bleeding. We will transfuse platelets if if her platelet count drops below 20,000 We will continue to monitor. (5) GERD (gastroesophageal reflux disease) ICD Codes: K21.9 - Gastro-esophageal reflux disease without esophagitis Plan: On history of GERD Continue home Pepcid (6) Depressive Disorder Nec Plan: Continue Paroxetine 30mg PO daily (7) FEN Plan: No IV fluids at this time as patient is tolerating p.o. Will replete electrolytes as needed Regular diet Holding DVT prophylaxis as patient has history of thrombocytopenia and is at risk for bleeding. SCDs \ (Tiffanie Diallo MD R1) Problem List: (1) Dizziness ICD Codes: R42 - Dizziness and giddiness Plan: Patient with acute onset of dizziness, nausea, blurry vision and reported left-sided weakness. Mild facial droop, possible slurred speech on admission Neurology consulted. Elected against TPA as patient has a history of thrombocytopenia and symptoms were improving on admission Workup for stroke is been negative at this point Lipid profile, hemoglobin A1c normal 2D echo pending PT, OT, speech therapy Aspirin 81 mg daily, Platelets improving Currently on Lipitor 10 mg daily, will continue Imaging: CT head negative for acute bleed on admission Neck CTA on admission showed atherosclerotic Calcification in the arch, proximal arch vessels in both carotid bifurcations but no significant stenosis in the cervical vessels Head CTA showed all intracranial vessels patent without embolus MRI brain without evidence of acute stroke (2) HTN (hypertension) ICD Codes: I10 - Essential (primary) hypertension Plan: Blood pressures elevated at 171/74 this AM Continue 20mg PO daily Lisinopril Continue Nadolol 20mg PO daily Vasotec 1.25 mg IV push q4h for BP> 180/100 (3) Cirrhosis ICD Codes: K74.60 - Unspecified cirrhosis of liver Plan: Known history of cirrhosis Ammonia elevated at 70 this AM On rifaximin, lactulose increased to 30ml TID (4) Thrombocytopenia ICD Codes: D69.6 - Thrombocytopenia, unspecified Plan: Patient with a known history of thrombocytopenia Platelet count improving No signs of acute bleeding. We will transfuse platelets if if her platelet count drops below 20,000 We will continue to monitor. (5) GERD (gastroesophageal reflux disease) ICD Codes: K21.9 - Gastro-esophageal reflux disease without esophagitis Plan: On history of GERD Continue home Pepcid (6) Depressive Disorder Nec Plan: Continue Paroxetine 30mg PO daily (7) FEN Plan: No IV fluids at this time as patient is tolerating p.o. Will replete electrolytes as needed Regular diet Holding DVT prophylaxis as patient has history of thrombocytopenia and is at risk for bleeding. SCDs See the residents documentation for details. I saw and evaluated the patient regarding the jefferson portions of this evaluation and agree with the residents findings and plans as written. Parts of this note were created using [employer] voice recognition software program. While efforts were made to correct any mistakes made by this software, some mistakes, errors, and omissions may remain in the final note that were not caught when the note was originally created. Plan of care was discussed and agreed upon with the patient as specifically documented in the above note. An opportunity to ask questions with explanation was provided. Patient voiced understanding on all information reviewed and discussed. \ (Norberto Wallace MD) Tiffanie Diallo MD R1 December 17, 2017 08:59 Norberto Wallace MD December 18, 2017 12:46
[2017-12-17] MEDS: REMOVE OLD PATCH T-DERMAL SCH (09:00)
[2017-12-17] MEDS: NICOTINE 14 MG/24 HR PATCH T-DERMAL SCH (09:00)
[2017-12-17] MEDS: SODIUM CHLORIDE 0.9% FLUSH 10 ML FLUSH IV FLUSH SCH ×2 (09:00→23:26)
[2017-12-17] MEDS ORDERED: LACTULOSE LIQ 300 ML in WATER STERILE FOR IRR BTL 700 ML RECTAL ONE (10:15)
[2017-12-17] MEDS: LISINOPRIL 20 MG TAB PO SCH (11:00)
[2017-12-17] MEDS: RIFAXIMIN 200 MG TAB PO SCH ×3 (11:00→17:20)
[2017-12-17] MEDS: ASPIRIN 81 MG CHEW TAB PO SCH (11:00)
[2017-12-17] MEDS: POTASSIUM CHLORIDE 20 MEQ CONTROLLED RELEASE TAB PO SCH (11:00)
[2017-12-17] MEDS: NADOLOL 20 MG TAB PO SCH (11:00)
[2017-12-17] MEDS: PARoxetine HCL 20 MG TAB PO SCH (11:00)
[2017-12-17] MEDS: LACTULOSE SYRUP 20 GM/30 ML CUP PO SCH ×3 (11:00→17:20)
[2017-12-17] MEDS: DOCUSATE SODIUM 50 MG/SENNA 8.6 MG TAB PO SCH ×2 (11:00→23:26)
[2017-12-17] MEDS: FAMOTIDINE 20 MG TAB PO SCH ×2 (11:00→23:26)
--- NOTE | 2017-12-17 12:07 | ECHRPT ---
Indication: Transient cerebral ischemic attack, unspecified CONCLUSIONS trace mitral valve regurgitation. The transthoracic study is normal by two-dimensional, color flow imaging and Doppler interrogation. The transthoracic study is normal by two-dimensional, color flow imaging and Doppler interrogation. The left ventricular systolic function is normal with an estimated ejection fraction in the range of 55-65%. No mitral valve stenosis trace mitral valve regurgitation. The pulmonary valve is not well visualized. BP: 145 / 72 HR: 60 Rhythm: MEASUREMENTS (Male / Female) Normal Values Technical Quality:Fair 2D ECHO LV Diastolic Diameter PLAX 4.4 cm 4.2 - 5.9 / 3.9 - 5.3 cm LV Systolic Diameter PLAX 3.3 cm IVS Diastolic Thickness 1.1 cm 0.6 - 1.0 / 0.6 - 0.9 cm LVPW Diastolic Thickness 1.0 cm 0.6 - 1.0 / 0.6 - 0.9 cm LV Relative Wall Thickness 0.5 RV Internal Dim ED PLAX 2.1 cm M-MODE Aortic Root Diameter MM 3.2 cm LA Systolic Diameter MM 4.3 cm LA Ao Ratio MM 1.3 AV Cusp Separation MM 2.0 cm FINDINGS LEFT VENTRICLE Normal left ventricular size and wall thickness. The left ventricular systolic function is normal wi th an estimated ejection fraction in the range of 55-65%. Left ventricular diastolic function parameters a re normal. RIGHT VENTRICLE Normal right ventricular size and systolic function. LEFT ATRIUM The left atrial size is normal. RIGHT ATRIUM The right atrial size is normal. ATRIAL SEPTUM Normal atrial septal thickness without atrial level shunting by limited color doppler interrogation. AORTA The aortic root and proximal ascending aorta are normal in size on limited imaging. MITRAL VALVE Structurally normal mitral valve. No mitral valve stenosis trace mitral valve regurgitation. AORTIC VALVE Trileaflet aortic valve. No aortic valve stenosis or regurgitation. TRICUSPID VALVE Structurally normal tricuspid valve. No tricuspid valve stenosis or regurgitation. PULMONARY VALVE The pulmonary valve is not well visualized. VESSELS The inferior vena cava is normal in size. PERICARDIUM No pericardial effusion. Edi Ramos MD, FACC, [facility] (Electronically Signed) Final Date:17 Dec 2017 12:06
[2017-12-17 12:32] VITALS: BP 160/74; PULSE 64; RESP 18; TEMP 99.2; O2SAT 95
[2017-12-17 16:00] VITALS: BP 159/77; PULSE 65; RESP 18; TEMP 97.9; O2SAT 95
[2017-12-17 20:00] VITALS: BP 167/76; PULSE 70; RESP 19; TEMP 97.7; O2SAT 96
[2017-12-17] MEDS: ATORVASTATIN 10 MG TAB PO SCH (23:26)
[2017-12-18] VITALS (8 sets, daily range): BP systolic 117–174; BP diastolic 63–118; PULSE 58–67; RESP 16–20; TEMP 97.2–98.8; O2SAT 95–100
[2017-12-18 06:46] LABS: HEMATOCRIT 40.2 % (35.0-46.0); HEMOGLOBIN 13.8 GM/DL (11.6-15.3); MEAN CELL VOLUME 96.8 FL (80.0-100.0); MEAN CORPUSCULAR HEMOGLOBIN 33.3 PG (27.0-34.0); MEAN CORPUSCULAR HGB CONC 34.4 % (32.0-36.0); MEAN PLATELET VOLUME 8.6 FL (7.0-11.0); PLATELET COUNT 87 TH/MM3 (150-450); RED BLOOD COUNT 4.15 MIL/MM3 (4.00-5.30); RED CELL DISTRIBUTION WIDTH 14.5 % (11.6-17.2); WHITE BLOOD COUNT 4.8 TH/MM3 (4.0-11.0)
[2017-12-18 07:09] LABS: BICARBONATE 28.3 MEQ/L (21.0-32.0); CREATININE 0.4 MG/DL (0.50-1.00)
[2017-12-18] MEDS ORDERED: POTASSIUM CHLORIDE 25 MEQ EFFERVESCENT TAB PO ONE (07:15)
[2017-12-18] MEDS ORDERED: LACTULOSE LIQ 300 ML in WATER STERILE FOR IRR BTL 700 ML RECTAL ONE ×2 (07:30→20:45)
[2017-12-18] MEDS: INSULIN ASPART SUPPLEMENTAL SCALE SQ SCH ×4 (08:00→21:00)
[2017-12-18] MEDS: LACTULOSE SYRUP 20 GM/30 ML CUP PO SCH ×3 (08:59→18:00)
[2017-12-18] MEDS: SODIUM CHLORIDE 0.9% FLUSH 10 ML FLUSH IV FLUSH SCH ×2 (08:59→21:00)
[2017-12-18] MEDS ORDERED: FLUMAZENIL 0.5 MG/5 ML VIAL IV PUSH PRN (09:00)
[2017-12-18] MEDS ORDERED: LORazepam 2 MG/ML VIAL IV PUSH PRN ×4 (09:00)
[2017-12-18] MEDS: PARoxetine HCL 20 MG TAB PO SCH (09:00)
[2017-12-18] MEDS: ASPIRIN 81 MG CHEW TAB PO SCH (09:00)
[2017-12-18] MEDS ORDERED: LORazepam 2 MG TAB PO PRN (09:00)
[2017-12-18] MEDS: DOCUSATE SODIUM 50 MG/SENNA 8.6 MG TAB PO SCH ×2 (09:00→21:00)
[2017-12-18] MEDS ORDERED: LORazepam 1 MG TAB PO PRN (09:00)
[2017-12-18] MEDS: NADOLOL 20 MG TAB PO SCH (09:00)
[2017-12-18] MEDS: POTASSIUM CHLORIDE 20 MEQ CONTROLLED RELEASE TAB PO SCH (09:01)
[2017-12-18] MEDS: LISINOPRIL 20 MG TAB PO SCH (09:01)
[2017-12-18] MEDS: FAMOTIDINE 20 MG TAB PO SCH ×2 (09:01→21:00)
[2017-12-18] MEDS: RIFAXIMIN 200 MG TAB PO SCH ×3 (09:01→18:00)
[2017-12-18] MEDS: NICOTINE 14 MG/24 HR PATCH T-DERMAL SCH (09:02)
[2017-12-18] MEDS: REMOVE OLD PATCH T-DERMAL SCH (09:04)
--- NOTE | 2017-12-18 11:53 | HHI.FPPN ---
Subjective Remarks No acute events overnight. Patient lying in bed. Patient is very alert and oriented this morning. Blood pressure elevated at 174/76 this morning. Will increase hypertension medications. Patient states that her hearing aid broke and she is missing the upper part of her dentures. Patient denies chest pain, shortness of breath, abdominal pain,DEY, and nausea/vomiting. (Tiffanie Diallo MD R1) Objective Vitals Vital Signs Date Time Temp Pulse Resp B/P (MAP) Pulse Ox O2 Delivery O2 Flow Rate FiO2 12/18/17 11:07 97 Nasal Cannula 2.00 12/18/17 08:20 97.2 62 18 156/74 (101) 97 12/18/17 04:00 98.4 63 20 174/76 (108) 98 12/18/17 00:00 98.8 67 19 161/118 (132) 100 12/17/17 20:00 97.7 70 19 167/76 (106) 96 12/17/17 16:00 97.9 65 18 159/77 (104) 95 12/17/17 12:32 99.2 64 18 160/74 (102) 95 I/O 12/17/17 12/17/17 12/17/17 12/18/17 12/18/17 12/18/17 07:00 15:00 23:00 07:00 15:00 23:00 # Voids 1 3 4 # Bowel Movements 1 3 1 (Tiffanie Diallo MD R1) Result Diagram: 12/18/17 0633 12/18/17 0633 Objective Remarks GENERAL: This is a well-nourished, well-developed patient, in no apparent distress. SKIN: No rashes, ecchymoses or lesions. Cool and dry. HEAD: Atraumatic. Normocephalic. CARDIOVASCULAR: Regular rate and rhythm without murmurs, gallops, or rubs. RESPIRATORY: Clear to auscultation. Breath sounds equal bilaterally. No wheezes , rales, or rhonchi. GASTROINTESTINAL: Abdomen soft, non-tender, nondistended. No hepato-splenomegaly , or palpable masses. No guarding. MUSCULOSKELETAL: Extremities without clubbing, cyanosis, or edema. No joint tenderness, effusion, or edema noted. NEUROLOGICAL: Alert. Awake. Oriented. EOMI. CN 2-12 intact. sensation intact. (Tiffanie Diallo MD R1) A/P Assessment and Plan 72 yo F with PMH of alcoholic cirrhosis, HTN, thrombocytopenia presenting to the ED as a stroke alert. At 11:00 AM on morning of admission she suddenly became dizzy, vomited, and had reported L sided weakness. Has possible mild left sided facial droop, slurred speech. CT Head on admission negative for acute bleed. Neurology consulted and was not a candidate for TPA. Admitted for further workup below. Discharge Planning Anticipate discharge to [facility] today for rehab Awaiting home oxygen walk test (Tiffanie Diallo MD R1) Problem List: (1) Dizziness ICD Codes: R42 - Dizziness and giddiness Plan: Patient with acute onset of dizziness, nausea, blurry vision and reported left-sided weakness. Mild facial droop, possible slurred speech on admission Neurology consulted. Elected against TPA as patient has a history of thrombocytopenia and symptoms were improving on admission Workup for stroke is been negative at this point Lipid profile, hemoglobin A1c normal 2D echo demonstrates trace mitral valve regurgitation, EF of 55-65% Patient will require rehab at [facility], PT, OT, speech therapy Aspirin 81 mg daily, Platelets improving Currently on Lipitor 10 mg daily, will continue Imaging: CT head negative for acute bleed on admission Neck CTA on admission showed atherosclerotic Calcification in the arch, proximal arch vessels in both carotid bifurcations but no significant stenosis in the cervical vessels Head CTA showed all intracranial vessels patent without embolus MRI brain without evidence of acute stroke (2) HTN (hypertension) ICD Codes: I10 - Essential (primary) hypertension Plan: Blood pressures elevated at 174/76 this AM Increase lisinopril to 40 mg daily Continue Nadolol 20mg PO daily Vasotec 1.25 mg IV push q4h for BP> 180/100 (3) Cirrhosis ICD Codes: K74.60 - Unspecified cirrhosis of liver Plan: Known history of cirrhosis Ammonia improved to 57 this a.m., patient given lactulose suppository, will recheck ammonium again at noon Continue rifaximin and lactulose 30ml TID (4) Thrombocytopenia ICD Codes: D69.6 - Thrombocytopenia, unspecified Plan: Patient with a known history of thrombocytopenia Platelet count improving No signs of acute bleeding. We will transfuse platelets if if her platelet count drops below 20,000 We will continue to monitor. (5) GERD (gastroesophageal reflux disease) ICD Codes: K21.9 - Gastro-esophageal reflux disease without esophagitis Plan: On history of GERD Continue home Pepcid (6) Depressive Disorder Nec Plan: Continue Paroxetine 30mg PO daily (7) FEN Plan: No IV fluids at this time as patient is tolerating p.o. Will replete electrolytes as needed Regular diet Holding DVT prophylaxis as patient has history of thrombocytopenia and is at risk for bleeding. SCDs \ (Tiffanie Diallo MD R1) Problem List: (1) Dizziness ICD Codes: R42 - Dizziness and giddiness Plan: Patient with acute onset of dizziness, nausea, blurry vision and reported left-sided weakness. Mild facial droop, possible slurred speech on admission Neurology consulted. Elected against TPA as patient has a history of thrombocytopenia and symptoms were improving on admission Workup for stroke is been negative at this point Lipid profile, hemoglobin A1c normal 2D echo demonstrates trace mitral valve regurgitation, EF of 55-65% Patient will require rehab at [facility], PT, OT, speech therapy Aspirin 81 mg daily, Platelets improving Currently on Lipitor 10 mg daily, will continue Imaging: CT head negative for acute bleed on admission Neck CTA on admission showed atherosclerotic Calcification in the arch, proximal arch vessels in both carotid bifurcations but no significant stenosis in the cervical vessels Head CTA showed all intracranial vessels patent without embolus MRI brain without evidence of acute stroke (2) HTN (hypertension) ICD Codes: I10 - Essential (primary) hypertension Plan: Blood pressures elevated at 174/76 this AM Increase lisinopril to 40 mg daily Continue Nadolol 20mg PO daily Vasotec 1.25 mg IV push q4h for BP> 180/100 (3) Cirrhosis ICD Codes: K74.60 - Unspecified cirrhosis of liver Plan: Known history of cirrhosis Ammonia improved to 57 this a.m., patient given lactulose suppository, will recheck ammonium again at noon Continue rifaximin and lactulose 30ml TID (4) Thrombocytopenia ICD Codes: D69.6 - Thrombocytopenia, unspecified Plan: Patient with a known history of thrombocytopenia Platelet count improving No signs of acute bleeding. We will transfuse platelets if if her platelet count drops below 20,000 We will continue to monitor. (5) GERD (gastroesophageal reflux disease) ICD Codes: K21.9 - Gastro-esophageal reflux disease without esophagitis Plan: On history of GERD Continue home Pepcid (6) Depressive Disorder Nec Plan: Continue Paroxetine 30mg PO daily (7) FEN Plan: No IV fluids at this time as patient is tolerating p.o. Will replete electrolytes as needed Regular diet Holding DVT prophylaxis as patient has history of thrombocytopenia and is at risk for bleeding. SCDs Spoke with the charge nurse about the patient missing her dentures, and hearing aid. See the residents documentation for details. I saw and evaluated the patient regarding the jefferson portions of this evaluation and agree with the residents findings and plans as written. Parts of this note were created using [employer] voice recognition software program. While efforts were made to correct any mistakes made by this software, some mistakes, errors, and omissions may remain in the final note that were not caught when the note was originally created. Plan of care was discussed and agreed upon with the patient as specifically documented in the above note. An opportunity to ask questions with explanation was provided. Patient voiced understanding on all information reviewed and discussed. (Norberto Wallace MD) Tiffanie Diallo MD R1 December 18, 2017 11:53 Norberto Wallace MD December 18, 2017 12:56
[2017-12-18] MEDS: THIAMINE INJ 100 MG in SODIUM CHLORIDE 0.9% INJ 100 ML IV SCH (12:06)
[2017-12-18] MEDS: MULTIVITAMIN INJ 10 ML, FOLIC ACID INJ 1 MG in SODIUM CHLORID 0.9% 500 ML INJ 500 ML IV SCH (13:04)
[2017-12-18] MEDS ORDERED: CIPR0.3S EACH EAR (13:51)
[2017-12-18] MEDS ORDERED: CALCCHW5 PO (13:51)
[2017-12-18] MEDS ORDERED: ASPI81 PO (13:51)
[2017-12-18] MEDS ORDERED: FERR324T4 PO (13:51)
[2017-12-18] MEDS ORDERED: LISI-515 PO (13:51)
[2017-12-18] MEDS ORDERED: XIFA200T4 PO (13:51)
[2017-12-18] MEDS ORDERED: NADO20TA PO (13:51)
[2017-12-18] MEDS ORDERED: POTA20TA5 PO (13:51)
[2017-12-18] MEDS ORDERED: PAXI30TA7 PO (13:51)
[2017-12-18] MEDS ORDERED: Lactulose Liq PO (13:51)
[2017-12-18] MEDS ORDERED: TEMA15CA PO (13:51)
[2017-12-18] MEDS ORDERED: [UNRECOGNIZED DRUG - CODE] TOPICAL (13:51)
[2017-12-18] MEDS ORDERED: FAMO20TA2 PO (13:51)
[2017-12-18] MEDS ORDERED: ARTI99.0 EACH EYE (13:51)
--- NOTE | 2017-12-18 13:53 | HHI.DCPOC ---
Discharge Care Plan Diagnosis: (1) Cirrhosis (2) Thrombocytopenia (3) Dizziness (4) HTN (hypertension) (5) Dry eyes, bilateral Goals to Promote Your Health * To prevent worsening of your condition and complications * To maintain your health at the optimal level Directions to Meet Your Goals Take your medications as prescribed Follow your dietary instruction Follow activity as directed Keep your appointments as scheduled Take your immunizations and boosters as scheduled If your symptoms worsen call your PCP, if no PCP go to Urgent Care Center or Emergency Room Smoking is Dangerous to Your Health. Avoid second hand smoke Call the 24-hour hour crisis hotline for domestic abuse at Tiffanie Diallo MD R1 December 18, 2017 13:53 Norberto Wallace MD December 19, 2017 12:23
[2017-12-18] MEDS: ATORVASTATIN 10 MG TAB PO SCH (21:00)
[2017-12-19 04:00] VITALS: BP 146/68; PULSE 87; RESP 16; TEMP 97; O2SAT 93
[2017-12-19 06:21] LABS: BICARBONATE 27.5 MEQ/L (21.0-32.0); CALCIUM 7.9 MG/DL (8.5-10.1); CREATININE 0.41 MG/DL (0.50-1.00)
[2017-12-19] MEDS ORDERED: POTASSIUM CHLORIDE 20 MEQ CONTROLLED RELEASE TAB PO ONE (07:15)
[2017-12-19] MEDS: INSULIN ASPART SUPPLEMENTAL SCALE SQ SCH (07:26)
[2017-12-19 08:00] VITALS: BP 144/67; PULSE 65; RESP 20; TEMP 98.6; O2SAT 96
[2017-12-19] MEDS: SODIUM CHLORIDE 0.9% FLUSH 10 ML FLUSH IV FLUSH SCH (08:38)
[2017-12-19] MEDS: PARoxetine HCL 20 MG TAB PO SCH (08:40)
[2017-12-19] MEDS: NADOLOL 20 MG TAB PO SCH (08:40)
[2017-12-19] MEDS: DOCUSATE SODIUM 50 MG/SENNA 8.6 MG TAB PO SCH (08:40)
[2017-12-19] MEDS: POTASSIUM CHLORIDE 20 MEQ CONTROLLED RELEASE TAB PO SCH (08:40)
[2017-12-19] MEDS: ASPIRIN 81 MG CHEW TAB PO SCH (08:40)
[2017-12-19] MEDS: LISINOPRIL 20 MG TAB PO SCH (08:40)
[2017-12-19] MEDS: FAMOTIDINE 20 MG TAB PO SCH (08:40)
[2017-12-19] MEDS: LACTULOSE SYRUP 20 GM/30 ML CUP PO SCH ×2 (08:40→10:58)
[2017-12-19] MEDS: NICOTINE 14 MG/24 HR PATCH T-DERMAL SCH (08:41)
[2017-12-19] MEDS: RIFAXIMIN 200 MG TAB PO SCH ×2 (08:41→10:58)
[2017-12-19] MEDS: REMOVE OLD PATCH T-DERMAL SCH (08:41)
--- NOTE | 2017-12-19 09:02 | HHI.DS ---
Discharge Summary Admission Date December 13, 2017 at 16:45 Admitting Diagnosis (1) Dizziness Plan: Patient with acute onset of dizziness, nausea, blurry vision and reported left-sided weakness. Mild facial droop, possible slurred speech on admission Neurology consulted. Elected against TPA as patient has a history of thrombocytopenia and symptoms were improving on admission Workup for stroke is been negative at this point Lipid profile, hemoglobin A1c normal 2D echo demonstrates trace mitral valve regurgitation, EF of 55-65% Patient will require rehab at [facility], PT, OT, speech therapy Aspirin 81 mg daily, Platelets improving Currently on Lipitor 10 mg daily, will continue Imaging: CT head negative for acute bleed on admission Neck CTA on admission showed atherosclerotic Calcification in the arch, proximal arch vessels in both carotid bifurcations but no significant stenosis in the cervical vessels Head CTA showed all intracranial vessels patent without embolus MRI brain without evidence of acute stroke ICD Codes: R42 - Dizziness and giddiness (2) HTN (hypertension) Plan: Blood pressures elevated at 174/76 this AM Increase lisinopril to 40 mg daily Continue Nadolol 20mg PO daily Vasotec 1.25 mg IV push q4h for BP> 180/100 ICD Codes: I10 - Essential (primary) hypertension (3) Cirrhosis Plan: Known history of cirrhosis Ammonia improved to 57 this a.m., patient given lactulose suppository, will recheck ammonium again at noon Continue rifaximin and lactulose 30ml TID ICD Codes: K74.60 - Unspecified cirrhosis of liver (4) Thrombocytopenia Plan: Patient with a known history of thrombocytopenia Platelet count improving No signs of acute bleeding. We will transfuse platelets if if her platelet count drops below 20,000 We will continue to monitor. ICD Codes: D69.6 - Thrombocytopenia, unspecified (5) GERD (gastroesophageal reflux disease) Plan: On history of GERD Continue home Pepcid ICD Codes: K21.9 - Gastro-esophageal reflux disease without esophagitis (6) Depressive Disorder Nec Plan: Continue Paroxetine 30mg PO daily (7) FEN Plan: No IV fluids at this time as patient is tolerating p.o. Will replete electrolytes as needed Regular diet Holding DVT prophylaxis as patient has history of thrombocytopenia and is at risk for bleeding. SCDs Spoke with the charge nurse about the patient missing her dentures, and hearing aid. See the residents documentation for details. I saw and evaluated the patient regarding the jefferson portions of this evaluation and agree with the residents findings and plans as written. Parts of this note were created using [employer] voice recognition software program. While efforts were made to correct any mistakes made by this software, some mistakes, errors, and omissions may remain in the final note that were not caught when the note was originally created. Plan of care was discussed and agreed upon with the patient as specifically documented in the above note. An opportunity to ask questions with explanation was provided. Patient voiced understanding on all information reviewed and discussed. Brief History 72 yo F with PMH of alcoholic cirrhosis, thrombocytopenia who comes to the ED as a stroke alert. She is a resident of [facility]. Was in normal state of health this AM, but after smoking a cigarette around 11:00 AM she felt like she couldn't stand up due to dizziness. She vomited at that time and is also endorsing blurry vision that is worse in her L eye. Per report she had left sided weakness but she denies this. Denies headache, chest pain, SOB. She does have L sided facial droop as well. CBC/BMP: 12/18/17 0633 12/19/17 0537 Significant Findings Laboratory Tests Test 12/16/17 13:06 12/17/17 05:19 12/18/17 06:33 12/18/17 12:53 Ammonia 95 MCMOL/L (11-32) 70 MCMOL/L (11-32) 57 MCMOL/L (11-32) 103 MCMOL/L (11-32) Platelet Count 67 TH/MM3 (150-450) 87 TH/MM3 (150-450) Creatinine 0.45 MG/DL (0.50-1.00) 0.40 MG/DL (0.50-1.00) Calcium Level 7.8 MG/DL (8.5-10.1) 8.0 MG/DL (8.5-10.1) Potassium Level 3.1 MEQ/L (3.5-5.1) 3.4 MEQ/L (3.5-5.1) Chloride Level 108 MEQ/L (98-107) Test 12/18/17 17:30 12/19/17 05:37 Ammonia 64 MCMOL/L (11-32) 39 MCMOL/L (11-32) Creatinine 0.41 MG/DL (0.50-1.00) Calcium Level 7.9 MG/DL (8.5-10.1) Potassium Level 3.1 MEQ/L (3.5-5.1) PE at Discharge GENERAL: This is a well-nourished, well-developed patient, in no apparent distress. SKIN: No rashes, ecchymoses or lesions. Cool and dry. HEAD: Atraumatic. Normocephalic. CARDIOVASCULAR: Regular rate and rhythm without murmurs, gallops, or rubs. RESPIRATORY: Clear to auscultation. Breath sounds equal bilaterally. No wheezes , rales, or rhonchi. GASTROINTESTINAL: Abdomen soft, non-tender, nondistended. No hepato-splenomegaly , or palpable masses. No guarding. MUSCULOSKELETAL: Extremities without clubbing, cyanosis, or edema. No joint tenderness, effusion, or edema noted. NEUROLOGICAL: Alert. Awake. Oriented. EOMI. CN 2-12 intact. sensation intact. Tiffanie Diallo MD R1 December 19, 2017 09:02
--- NOTE | 2017-12-19 10:12 | HHI.FPPN ---
Subjective Remarks Patient was sitting up in bed this morning. She appears more alert but is still confused. She refused her lactulose enema last night. Clearly states that she wants to return to [facility]. (Emmy Diego MD R2) Objective Vitals Vital Signs Date Time Temp Pulse Resp B/P (MAP) Pulse Ox O2 Delivery O2 Flow Rate FiO2 12/19/17 08:00 98.6 65 20 144/67 (92) 96 12/19/17 04:00 97.0 87 16 146/68 (94) 93 12/18/17 20:00 98.1 64 16 117/63 (81) 96 12/18/17 18:10 96 21 12/18/17 16:00 97.9 60 18 162/74 (103) 96 12/18/17 12:00 97.8 58 18 136/64 (88) 95 12/18/17 11:07 97 Nasal Cannula 2.00 I/O 12/18/17 12/18/17 12/18/17 12/19/17 12/19/17 12/19/17 07:00 15:00 23:00 07:00 15:00 23:00 Intake Total 580 ml 120 ml Balance 580 ml 120 ml Intake Oral 480 ml 120 ml IV Total 100 ml # Voids 4 7 1 1 # Bowel Movements 1 8 (Emmy Diego MD R2) Result Diagram: 12/18/17 0633 12/19/17 0537 Objective Remarks GENERAL: This is a well-nourished, well-developed patient, in no apparent distress. SKIN: No rashes, ecchymoses or lesions. Cool and dry. HEAD: Atraumatic. Normocephalic. CARDIOVASCULAR: Regular rate and rhythm without murmurs, gallops, or rubs. RESPIRATORY: Clear to auscultation. Breath sounds equal bilaterally. No wheezes , rales, or rhonchi. GASTROINTESTINAL: Abdomen soft, non-tender, nondistended. No hepato-splenomegaly , or palpable masses. No guarding. MUSCULOSKELETAL: Extremities without clubbing, cyanosis, or edema. No joint tenderness, effusion, or edema noted. NEUROLOGICAL: Alert. Awake. Oriented to person and place. EOMI. CN 2-12 intact. sensation intact. (Emmy Diego MD R2) A/P Assessment and Plan 72 yo F with PMH of alcoholic cirrhosis, HTN, thrombocytopenia presented to the ED as a stroke alert. At 11:00 AM on morning of admission she suddenly became dizzy, vomited, and had reported L sided weakness. She also had possible mild left sided facial droop, slurred speech. CT Head on admission negative for acute bleed. Neurology consulted and was not a candidate for TPA. Admitted for further workup below. Discharge Planning Anticipate discharge to [facility] today for rehab (Emmy Diego MD R2) Problem List: (1) Dizziness ICD Codes: R42 - Dizziness and giddiness Plan: Patient with acute onset of dizziness, nausea, blurry vision and reported left-sided weakness. Mild facial droop, possible slurred speech on admission Neurology consulted. Elected against TPA as patient has a history of thrombocytopenia and symptoms were improving on admission Workup for stroke has been negative at this point Lipid profile, hemoglobin A1c normal 2D echo demonstrates trace mitral valve regurgitation, EF of 55-65% Patient will require rehab at [facility], PT, OT, speech therapy Aspirin 81 mg daily, Platelets improving Continue Lipitor 10 mg daily Imaging: CT head negative for acute bleed on admission Neck CTA on admission showed atherosclerotic Calcification in the arch, proximal arch vessels in both carotid bifurcations but no significant stenosis in the cervical vessels Head CTA showed all intracranial vessels patent without embolus MRI brain without evidence of acute stroke (2) HTN (hypertension) ICD Codes: I10 - Essential (primary) hypertension Plan: Blood pressures much better controlled in the last 24 hours Continue Lisinopril to 40 mg daily Continue Nadolol 20mg PO daily Vasotec 1.25 mg IV push q4h for BP> 180/100 (3) Cirrhosis ICD Codes: K74.60 - Unspecified cirrhosis of liver Plan: Known history of cirrhosis Ammonia improved to 39 this a.m. Continue rifaximin and lactulose 30ml TID (4) Thrombocytopenia ICD Codes: D69.6 - Thrombocytopenia, unspecified Plan: Patient with a known history of thrombocytopenia Platelet count improving No signs of acute bleeding. We will transfuse platelets if if her platelet count drops below 20,000 We will continue to monitor. (5) GERD (gastroesophageal reflux disease) ICD Codes: K21.9 - Gastro-esophageal reflux disease without esophagitis Plan: On history of GERD Continue home Pepcid (6) Depressive Disorder Nec Plan: Continue Paroxetine 30mg PO daily (7) FEN Plan: No IV fluids at this time as patient is tolerating p.o. Will replete electrolytes as needed Regular diet Holding DVT prophylaxis as patient has history of thrombocytopenia and is at risk for bleeding. SCDs SDW Dr. Wallace, Dr. Diallo, and Tito Mckenzieotayo, MS4 (Emmy Diego MD R2) Problem List: (1) Dizziness ICD Codes: R42 - Dizziness and giddiness Plan: Patient with acute onset of dizziness, nausea, blurry vision and reported left-sided weakness. Mild facial droop, possible slurred speech on admission Neurology consulted. Elected against TPA as patient has a history of thrombocytopenia and symptoms were improving on admission Workup for stroke has been negative at this point Lipid profile, hemoglobin A1c normal 2D echo demonstrates trace mitral valve regurgitation, EF of 55-65% Patient will require rehab at [facility], PT, OT, speech therapy Aspirin 81 mg daily, Platelets improving Continue Lipitor 10 mg daily Imaging: CT head negative for acute bleed on admission Neck CTA on admission showed atherosclerotic Calcification in the arch, proximal arch vessels in both carotid bifurcations but no significant stenosis in the cervical vessels Head CTA showed all intracranial vessels patent without embolus MRI brain without evidence of acute stroke (2) HTN (hypertension) ICD Codes: I10 - Essential (primary) hypertension Plan: Blood pressures much better controlled in the last 24 hours Continue Lisinopril to 40 mg daily Continue Nadolol 20mg PO daily Vasotec 1.25 mg IV push q4h for BP> 180/100 (3) Cirrhosis ICD Codes: K74.60 - Unspecified cirrhosis of liver Plan: Known history of cirrhosis Ammonia improved to 39 this a.m. Continue rifaximin and lactulose 30ml TID (4) Thrombocytopenia ICD Codes: D69.6 - Thrombocytopenia, unspecified Plan: Patient with a known history of thrombocytopenia Platelet count improving No signs of acute bleeding. We will transfuse platelets if if her platelet count drops below 20,000 We will continue to monitor. (5) GERD (gastroesophageal reflux disease) ICD Codes: K21.9 - Gastro-esophageal reflux disease without esophagitis Plan: On history of GERD Continue home Pepcid (6) Depressive Disorder Nec Plan: Continue Paroxetine 30mg PO daily (7) FEN Plan: No IV fluids at this time as patient is tolerating p.o. Will replete electrolytes as needed Regular diet Holding DVT prophylaxis as patient has history of thrombocytopenia and is at risk for bleeding. SCDs SDW Dr. Wallace, Dr. Diallo, and Tito Avitia MS4 See the residents documentation for details. I saw and evaluated the patient regarding the jefferson portions of this evaluation and agree with the residents findings and plans as written. Parts of this note were created using [employer] voice recognition software program. While efforts were made to correct any mistakes made by this software, some mistakes, errors, and omissions may remain in the final note that were not caught when the note was originally created. Plan of care was discussed and agreed upon with the patient as specifically documented in the above note. An opportunity to ask questions with explanation was provided. Patient voiced understanding on all information reviewed and discussed. (Norberto Wallace MD) Emmy Diego MD R2 December 19, 2017 10:11 Norberto Wallace MD December 19, 2017 12:29
[2017-12-19] MEDS: THIAMINE INJ 100 MG in SODIUM CHLORIDE 0.9% INJ 100 ML IV SCH (10:58)
[2017-12-19] MEDS: MULTIVITAMIN INJ 10 ML, FOLIC ACID INJ 1 MG in SODIUM CHLORID 0.9% 500 ML INJ 500 ML IV SCH (10:58)
[2017-12-19 11:20] VITALS: O2SAT 95
[2017-12-19] MEDS ORDERED: TEMA15CA PO (15:15)
== END 2017-12-19 13:17 | DRG 149 ==
LOC: NEPC 12:03 → NEDA 16:45 → N05B 19:05
PROVIDERS: ADMIT Family Medicine; ATTEND Family Medicine
DX: R42 Dizziness and giddiness (principal); D69.6 Thrombocytopenia, unspecified; K70.30 Alcoholic cirrhosis of liver without ascites; Z78.1 Physical restraint status; I16.0 Hypertensive urgency; R29.810 Facial weakness; R47.81 Slurred speech; I10 Essential (primary) hypertension; K21.9 Gastro-esophageal reflux disease without esophagitis; F17.210 Nicotine dependence, cigarettes, uncomplicated; F32.9 Major depressive disorder, single episode, unspecified
CPT/HCPCS: 70450; 70496; 70498; 70551; 76937; 80048; 80053; 80061; 80307; 81001; 82140; 82550; 82607; 82948; 83036; 84425; 84484; 85025; 85027; 85384; 85610; 85730; 86850; 86900; 86901; 86920; 86921; 86922; 93005; 93306; 94618; 96360; 96361; J1630; J2060; J3411; J7030; J7040; Q9967